=== PATIENT | male | born 1965 | race Two or more races ===

== ENCOUNTER 2016-09-16 01:31 | Emergency (ER) | payer OTHER ==
[~2016-09-16] VITALS: Ht 162.6 cm; Wt 72.6 kg
--- NOTE | 2016-09-16 01:35 | NUR ---
To bed 9 a 51 yo male bibra with c/o "FOUND AT 12/24 SEATED IN CHAIR, SHAKING." Per patient last intake of alcohol was yesterday and said, "Im a chronic alcoholic." Patient is aaox3, ambulatory. No s/s of acute distress. Breathing even and unlabored. VSS. Denies any pain, or discomfort. Gowned. Awaiting for er md sanchez.
[2016-09-16] MEDS ORDERED: IV D5/ 0.9% NACL 1,000 ML IV ONE (01:58)
[2016-09-16] MEDS ORDERED: IV SET PRIMARY 1 EA INFUS.SET MC ONE (01:59)
--- NOTE | 2016-09-16 02:17 | NUR ---
Started a saline lock 20g on the left ac, blood drawd and sent to lab.
[2016-09-16 02:20] LABS: BASOPHILS # (AUTO) 0.1 /CMM (0.0-0.2); BASOPHILS % (AUTO) 0.9 % (0.0-2.0); EOSINOPHILS # (AUTO) 0.2 /CMM (0.0-0.7); EOSINOPHILS % (AUTO) 3.9 % (0.0-6.0); HEMATOCRIT 45 % (39-51); HEMOGLOBIN 14.6 g/dL (13.5-17.5); LYMPHOCYTES # (AUTO) 3.1 /CMM (0.8-4.8); LYMPHOCYTES % (AUTO) 50.6 % (20.0-44.0); MEAN CORPUSCULAR HEMOGLOBIN 30 PG (26.0-33.0); MEAN CORPUSCULAR HGB CONC 33 g/dl (31.0-36.0); MEAN CORPUSCULAR VOLUME 92 fL (80-96); MONOCYTES # (AUTO) 0.4 /CMM (0.1-1.30); MONOCYTES % (AUTO) 6.9 % (2.0-12.0); NEUTROPHILS # (AUTO) 2.3 /CMM (1.8-8.9); NEUTROPHILS % (AUTO) 37.7 % (43.0-81.0); PLATELET COUNT (AUTO) 280 /CMM (150-450); RDW COEFFICIENT OF VARIATION 17.8 (11.5-15.0); RED BLOOD CELL COUNT(AUTO) 4.87 MIL/uL (4.5-6.0); WHITE BLOOD COUNT (AUTO) 6.1 K/uL (4.3-11.0)
[2016-09-16] MEDS ORDERED: FLUORESCEIN SODIUM OPHTH 1 EA STRIP ONE (02:21)
[2016-09-16] MEDS ORDERED: TETRACAINE HCL/PF 0.5% UD 2 ML BOTTLE ONE (02:21)
[2016-09-16 02:29] LABS: CALCIUM, SERUM 8.5 mg/dL (8.5-10.1); CREATININE 0.7 mg/dL (0.6-1.3); POTASSIUM 4.1 mmol/L (3.5-5.1)
[2016-09-16] MEDS ORDERED: TETRACAINE HCL/PF 0.5% UD 2 ML BOTTLE LEFTEYE ONE (02:30)
[2016-09-16] MEDS ORDERED: FLUORESCEIN SODIUM OPHTH 1 EA STRIP OP ONE (02:30)
[2016-09-16 02:35] LABS: ALBUMIN 3.6 g/dL (3.4-5.0); BILIRUBIN,DIRECT 0.1 mg/dL (0.0-0.2); BILIRUBIN,TOTAL 0.2 mg/dL (0.2-1.0); SALICYLATE 2.6 mg/dL (2.8-20.0); TOTAL PROTEIN, SERUM 8.3 g/dL (6.4-8.2)
[2016-09-16] MEDS ORDERED: SOD BORATE/BORIC AC/H2O/NACL 118 ML BOTTLE ONE (02:36)
--- NOTE | 2016-09-16 03:00 | NUR ---
irrigated left eye with ocu wash per Dr Ulises madden, sumit yaritza procedure well.
[2016-09-16 03:03] LABS: APPEARANCE,URINE CLEAR (CLEAR); BILIRUBIN,URINE NEGATIVE (NEGATIVE); BLOOD, URINE NEGATIVE Ery/uL (NEGATIVE); COLOR,URINE YELLOW (YELLOW); KETONES,URINE NEGATIVE (NEGATIVE); LEUKOCYTE ESTERASE ,URINE NEGATIVE (NEGATIVE); NITRITE, URINE NEGATIVE (NEGATIVE); PH,URINE 5.5 (5.0-8.0); PROTEIN,URINE NEGATIVE (NEGATIVE); UGLUCOSE NEGATIVE (NEGATIVE); UROBILINOGEN,URINE 0.2 EU/dL (0.2)
[2016-09-16 03:27] LABS: CANNABINOID, URINE NEGATIVE (NEGATIVE); PHENCYCLIDINE SCREEN,URINE NEGATIVE (NEGATIVE)
[2016-09-16] MEDS ORDERED: LORAZEPAM 1 MG TABLET PO ONE (04:00)
[2016-09-16] MEDS ORDERED: ACYCLOVIR 200 MG CAPSULE PO ONE (04:00)
--- NOTE | 2016-09-16 04:35 | NUR ---
When patient learned that he is going to be discharged as ordered by md, patient got mad started yelling, getting agitated and aggressive. Patient walked out from facility. Dr Montgomery notified.
[2016-09-16 04:45] VITALS: BP 138/68
== END 2016-09-16 04:38 | disposition home or self-care (01) ==
LOC: ER 01:33
DX: F10.239 Alcohol dependence with withdrawal, unspecified (principal); B02.9 Zoster without complications
CPT/HCPCS: 36415; 80048; 80076; 80305; 80329; 81001; 83690; 83735; 85025; 93005; 96360; 99285; A4606; G0480 ×2; Z7610; 81000-TC; G6039-TC

== ENCOUNTER 2016-10-17 19:26 | Emergency (ER) | payer OTHER ==
[~2016-10-17] VITALS: Ht 177.8 cm; Wt 90.7 kg
--- NOTE | 2016-10-17 19:28 | NUR ---
PT BIB [facility] FOR ETOH INTOX. DENIES PHYSICAL COMPLAINT. DENIES SI/HI. NAD NOTED. PT ALERT BUT APPEARS INTOXICATED. ADMITS TO ETOH USE TODAY. IN ER BED 15 ON MONITOR.
--- NOTE | 2016-10-17 19:39 | NUR ---
ACCU-ISPCM=[id number].
--- NOTE | 2016-10-17 21:49 | NUR ---
Patient is resting comfortably in bed with eyes closed. Easily aroused. PT REPORTS DIZZINESS WHEN AWOKEN; PROVIDED WITH URINAL AND ALLOWED TO GO BACK TO SLEEP.
--- NOTE | 2016-10-17 23:31 | NUR ---
PT RESTING COMFORTABLY, NAD NOTED. REPORT GIVEN TO MARY ADAMS RN FOR OTILIA.
--- NOTE | 2016-10-18 05:50 | NUR ---
PT WOKE UP AND WAS ABLE TO AMBULATE WITH A STEADY GAIT. NO ATAXIA NOTED.
--- NOTE | 2016-10-18 05:50 | NUR ---
Patient discharged to home in stable condition. Written and verbal after care instructions given. Patient verbalizes understanding of instruction. PT AMBULATED OUT WITH A STEADY GAIT. VSS.
[2016-10-18 05:54] VITALS: BP 150/94
== END 2016-10-18 05:56 | disposition home or self-care (01) ==
LOC: ER 19:28
DX: R56.9 Unspecified convulsions (principal); F10.10 Alcohol abuse, uncomplicated; F17.200 Nicotine dependence, unspecified, uncomplicated; Z98.890 Other specified postprocedural states
CPT/HCPCS: 82962; 99283; A4606; Z7610

== ENCOUNTER 2016-10-22 13:48 | Emergency (ER) | payer OTHER ==
[~2016-10-22] VITALS: Ht 172.7 cm; Wt 108.4 kg
--- NOTE | 2016-10-22 14:09 | NUR ---
PT BIB RA C/O "SEIZURES FROM ALCOHOL WITHDRAWAL", HOWEVER NOTED WITH NO SZ ACTIVITY UPON ARRIVAL. C/O FALL DURING SZ WHICH CAUSED GALLITO HAND PAIN. ALSO C/O LLE PAIN X2 MONTHS. A/OX4, ABLE TO FOLLOW COMMANDS. RESP EVEN UNLABORED. SKIN WARM NONDIAPHORETIC, VERY DIRTY WITH POOR HYGIENE. IN ER BED 09.
--- NOTE | 2016-10-22 14:33 | NUR ---
PT TRANSPORTED TO CT IN STABLE CONDITION VIA [facility]
[2016-10-22 14:50] LABS: BASOPHILS # (AUTO) 0.2 /CMM (0.0-0.2); EOSINOPHILS # (AUTO) 0.1 /CMM (0.0-0.7); EOSINOPHILS % (AUTO) 1.1 % (0.0-6.0); HEMATOCRIT 41 % (39-51); HEMOGLOBIN 13.6 g/dL (13.5-17.5); LYMPHOCYTES # (AUTO) 1.7 /CMM (0.8-4.8); LYMPHOCYTES % (AUTO) 23.7 % (20.0-44.0); MEAN CORPUSCULAR HEMOGLOBIN 31 PG (26.0-33.0); MEAN CORPUSCULAR HGB CONC 33 g/dl (31.0-36.0); MEAN CORPUSCULAR VOLUME 94 fL (80-96); MONOCYTES # (AUTO) 0.6 /CMM (0.1-1.30); MONOCYTES % (AUTO) 8.1 % (2.0-12.0); NEUTROPHILS # (AUTO) 4.4 /CMM (1.8-8.9); NEUTROPHILS % (AUTO) 64.1 % (43.0-81.0); PLATELET COUNT (AUTO) 223 /CMM (150-450); RDW COEFFICIENT OF VARIATION 19.1 (11.5-15.0); RED BLOOD CELL COUNT(AUTO) 4.39 MIL/uL (4.5-6.0)
[2016-10-22 15:00] LABS: CALCIUM, SERUM 8.6 mg/dL (8.5-10.1); CREATININE 0.9 mg/dL (0.6-1.3); POTASSIUM 3.7 mmol/L (3.5-5.1)
[2016-10-22 15:05] LABS: INR 0.96 (0.87-1.13)
[2016-10-22 15:07] LABS: ALBUMIN 3.5 g/dL (3.4-5.0); BILIRUBIN,DIRECT 0.2 mg/dL (0.0-0.2); BILIRUBIN,TOTAL 1.1 mg/dL (0.2-1.0); TOTAL PROTEIN, SERUM 7.7 g/dL (6.4-8.2)
--- NOTE | 2016-10-22 15:18 | NUR ---
RESTING QUIETLY, NAD NOTED. ALL NEEDS ATTENDED TO.
[2016-10-22] MEDS ORDERED: LORAZEPAM 1 MG TABLET ONE (15:30)
[2016-10-22] MEDS ORDERED: ACETAMINOPHEN ES 500 MG TABLET ONE (15:30)
[2016-10-22] MEDS ORDERED: LORAZEPAM 1 MG TABLET PO ONE (15:30)
[2016-10-22] MEDS ORDERED: ACETAMINOPHEN ES 500 MG TABLET PO ONE (15:30)
--- NOTE | 2016-10-22 17:39 | NUR ---
EMT AT BEDSIDE APPLYING ULNAR GUTTER SPLINT. SEDATED BUT EASILY AROUSABLE. NAD NOTED. WILL CONTINUE TO MONITOR.
--- NOTE | 2016-10-22 17:44 | NUR ---
CALLED FOR FOOD TRAY
--- NOTE | 2016-10-22 18:55 | NUR ---
Patient discharged to home in stable condition. Written and verbal after care instructions given. Patient verbalizes understanding of instruction but refuses to sign paperwork or take discharge papers with him. NAD noted. Ambulatory with steady gait.
[2016-10-22 18:56] VITALS: BP 130/73
== END 2016-10-22 18:56 | disposition home or self-care (01) ==
LOC: ER 13:49
DX: S62.307A Unspecified fracture of fifth metacarpal bone, left hand, initial encounter for closed fracture (principal); F10.10 Alcohol abuse, uncomplicated; R40.4 Transient alteration of awareness; R74.0 Nonspecific elevation of levels of transaminase and lactic acid dehydrogenase [LDH]; G40.909 Epilepsy, unspecified, not intractable, without status epilepticus; F17.200 Nicotine dependence, unspecified, uncomplicated; X58.XXXA Exposure to other specified factors, initial encounter; Y93.89 Activity, other specified; Y99.8 Other external cause status; Y92.89 Other specified places as the place of occurrence of the external cause
CPT/HCPCS: 36415; 70450-TC; 72125-TC; 73130-TC; 73510-TC; 73550-TC; 80048-TC; 80076-TC; 83690-TC; 85025-TC; 85730-TC; A4606; Z7610

== ENCOUNTER 2016-10-23 17:15 | Emergency (ER) | payer OTHER ==
[~2016-10-23] VITALS: Ht 172.7 cm; Wt 83.9 kg
[2016-10-23 17:28] VITALS: BP 154/100
[2016-10-23] MEDS ORDERED: IV NS 0.9% 1,000 ML BAG IV ONE (18:00)
[2016-10-23] MEDS ORDERED: ACETAMINOPHEN ES 500 MG TABLET PO ONE (18:00)
[2016-10-23] MEDS ORDERED: KETOROLAC TROMETHAMINE INJ 30 MG/ML VIAL IV ONE (18:00)
[2016-10-23] MEDS ORDERED: LORAZEPAM INJ 2 MG/ML VIAL IV ONE (18:00)
[2016-10-23 18:36] LABS: BASOPHILS # (AUTO) 0.1 /CMM (0.0-0.2); EOSINOPHILS # (AUTO) 0.2 /CMM (0.0-0.7); EOSINOPHILS % (AUTO) 3.1 % (0.0-6.0); HEMATOCRIT 41 % (39-51); HEMOGLOBIN 13.4 g/dL (13.5-17.5); LYMPHOCYTES # (AUTO) 2.5 /CMM (0.8-4.8); MEAN CORPUSCULAR HEMOGLOBIN 31 PG (26.0-33.0); MEAN CORPUSCULAR HGB CONC 33 g/dl (31.0-36.0); MEAN CORPUSCULAR VOLUME 95 fL (80-96); MONOCYTES # (AUTO) 0.5 /CMM (0.1-1.30); NEUTROPHILS # (AUTO) 2.7 /CMM (1.8-8.9); NEUTROPHILS % (AUTO) 44.9 % (43.0-81.0); PLATELET COUNT (AUTO) 215 /CMM (150-450); RDW COEFFICIENT OF VARIATION 19.3 (11.5-15.0); RED BLOOD CELL COUNT(AUTO) 4.33 MIL/uL (4.5-6.0)
[2016-10-23 18:46] LABS: CALCIUM, SERUM 8.4 mg/dL (8.5-10.1); POTASSIUM 3.4 mmol/L (3.5-5.1)
[2016-10-23] MEDS ORDERED: POTASSIUM CHLORIDE 20 MEQ TAB.PRT.SR PO ONE ×2 (19:00→19:09)
[2016-10-23] MEDS ORDERED: IV NS 0.9% 2,000 ML ONE (19:09)
[2016-10-23] MEDS ORDERED: KETOROLAC TROMETHAMINE INJ 30 MG/ML VIAL ONE (19:09)
[2016-10-23] MEDS ORDERED: IV SET PRIMARY 1 EA INFUS.SET MC ONE (19:09)
[2016-10-23] MEDS ORDERED: LORAZEPAM INJ 2 MG/ML VIAL ONE (19:10)
--- NOTE | 2016-10-23 19:18 | NUR ---
ALL MEDICATIONS GIVEN ORDERED
--- NOTE | 2016-10-23 19:20 | NUR ---
NO ACUTE DISTRESS; POTASSIUM - REPLACED
--- NOTE | 2016-10-24 00:02 | NUR ---
PT OK TO DISCHARGE PER JYOTHI JORDAN. VITAL SIGNS WITHIN NORMAL LIMITS.IV removed. Catheter intact and site benign. Pressure and 4x4 applied to site. No bleeding noted.Patient discharged to home in stable condition. Written and verbal after care instructions given. Patient verbalizes understanding of instruction.Patient is awake and alert to self, day, and place. PT ambulatory with a steady gait
== END 2016-10-24 00:06 | disposition home or self-care (01) ==
LOC: ER 17:18
DX: S62.305A Unspecified fracture of fourth metacarpal bone, left hand, initial encounter for closed fracture (principal); F10.129 Alcohol abuse with intoxication, unspecified; Z59.0 Homelessness; E87.8 Other disorders of electrolyte and fluid balance, not elsewhere classified; E87.6 Hypokalemia; G40.909 Epilepsy, unspecified, not intractable, without status epilepticus; F17.210 Nicotine dependence, cigarettes, uncomplicated; X58.XXXA Exposure to other specified factors, initial encounter; Y92.89 Other specified places as the place of occurrence of the external cause; Y93.89 Activity, other specified; Y99.8 Other external cause status
CPT/HCPCS: 36415; 80048-TC; 85025-TC; A4606; G0480; J1885; J2060; J7030; Z7610

== ENCOUNTER 2016-10-25 18:01 | Inpatient (IN) | payer OTHER ==
[~2016-10-25] VITALS: Ht 177.8 cm; Wt 97.1 kg
--- NOTE | 2016-10-25 19:00 | NUR ---
PT TO ER BB RA FROM [facility] FOR ETOH ABUSE. NO IMMEDIATE SIGNS OF DISTRESS NOTED UPON ARRIVAL. PT A/OX3. PT ADMITS TO DRINKING ALCOHOL. BREATHS EQUAL AND UNLABORED. PT AMBULATORY WITH STEADY GAIT. PT RESTING IN [facility]
[2016-10-25 19:42] LABS: APPEARANCE,URINE Clear (CLEAR); BILIRUBIN,URINE Negative (NEGATIVE); BLOOD, URINE Negative Ery/uL (NEGATIVE); COLOR,URINE Yellow (YELLOW); KETONES,URINE Negative (NEGATIVE); LEUKOCYTE ESTERASE ,URINE Trace (NEGATIVE); NITRITE, URINE Negative (NEGATIVE); PH,URINE 5.5 (5.0-8.0); PROTEIN,URINE Negative (NEGATIVE); UGLUCOSE Negative (NEGATIVE); UROBILINOGEN,URINE 0.2 EU/dL (0.2)
[2016-10-25 19:50] LABS: CANNABINOID, URINE NEGATIVE (NEGATIVE); PHENCYCLIDINE SCREEN,URINE NEGATIVE (NEGATIVE)
[2016-10-25 20:00] LABS: BASOPHILS % (AUTO) 0.8 % (0.0-2.0); EOSINOPHILS # (AUTO) 0.1 /CMM (0.0-0.7); EOSINOPHILS % (AUTO) 2.6 % (0.0-6.0); HEMATOCRIT 37 % (39-51); HEMOGLOBIN 11.8 g/dL (13.5-17.5); LYMPHOCYTES # (AUTO) 2.7 /CMM (0.8-4.8); LYMPHOCYTES % (AUTO) 47.8 % (20.0-44.0); MEAN CORPUSCULAR HEMOGLOBIN 30 PG (26.0-33.0); MEAN CORPUSCULAR HGB CONC 32 g/dl (31.0-36.0); MEAN CORPUSCULAR VOLUME 94 fL (80-96); MONOCYTES # (AUTO) 0.5 /CMM (0.1-1.30); MONOCYTES % (AUTO) 9.7 % (2.0-12.0); NEUTROPHILS # (AUTO) 2.1 /CMM (1.8-8.9); NEUTROPHILS % (AUTO) 39.1 % (43.0-81.0); PLATELET COUNT (AUTO) 179 /CMM (150-450); RDW COEFFICIENT OF VARIATION 19.3 (11.5-15.0); RED BLOOD CELL COUNT(AUTO) 3.88 MIL/uL (4.5-6.0); WHITE BLOOD COUNT (AUTO) 5.4 K/uL (4.3-11.0)
[2016-10-25] MEDS ORDERED: LORAZEPAM 1 MG TABLET PO ONE (20:00)
[2016-10-25 20:06] LABS: CALCIUM, SERUM 8.1 mg/dL (8.5-10.1); CARBON DIOXIDE 24 mmol/L (21-32); CHLORIDE 104 mmol/L (98-107); CREATININE 0.8 mg/dL (0.6-1.3); GFR 102 mL/min (>60); GLUCOSE 104 mg/dL (74-106); POTASSIUM 3.9 mmol/L (3.5-5.1); SODIUM SERUM 138 mmol/L (136-145); UREA NITROGEN, BLOOD 8 mg/dL (7-18)
[2016-10-25 20:12] LABS: ALANINE AMINOTRANSFERASE 140 U/L (12-78); ALBUMIN 3.2 g/dL (3.4-5.0); ALCOHOL, BLOOD 180 mg/dL (0-0); ALKALINE PHOSPHATASE 88 U/L (46-116); ASPARTATE AMINOTRANSFERASE 160 U/L (15-37); BILIRUBIN,DIRECT 0.1 mg/dL (0.0-0.2); BILIRUBIN,TOTAL 0.3 mg/dL (0.2-1.0); TOTAL PROTEIN, SERUM 7.1 g/dL (6.4-8.2)
[2016-10-25 20:14] LABS: ACETAMINOPHEN < 2 ug/ml (10-30); SALICYLATE < 2.8 mg/dL (2.8-20.0)
[2016-10-25 20:21] LABS: ADD URINE CULTURE NO; BACTERIA,URINE None seen /HPF (None Seen); RBC,URINE 0-2 /HPF (0-2); SQUAMOUS EPITHELIAL CELL,UR Few /HPF (None Seen)
--- NOTE | 2016-10-25 21:12 | NUR ---
CALLED NURSING SUP. FOR MS BED
--- NOTE | 2016-10-25 21:12 | NUR ---
ONESIMO PAGED, DR. JOHN PAUL Bee CERTIFIED OPHTHALMIC TECHNICIAN
[2016-10-25] MEDS ORDERED: ACETAMINOPHEN 325 MG TABLET PO PRN (23:00)
[2016-10-25] MEDS ORDERED: MAGNESIUM HYDROXIDE 30 ML UDC PO PRN (23:00)
[2016-10-25] MEDS ORDERED: ZOLPIDEM TARTRATE 5 MG TABLET PO PRN (23:00)
[2016-10-25] MEDS ORDERED: Z GUARD REMEDY 2 OZ OINT TP PRN (23:00)
[2016-10-25] MEDS ORDERED: ONDANSETRON HCL/PF 4 MG/2 ML VIAL IVP PRN (23:00)
[2016-10-25] MEDS ORDERED: MAG HYDROX/AL HYDROX/SIMETH 30 ML UDC PO PRN (23:00)
[2016-10-26] VITALS (21 sets, daily range): BP systolic 118–230; BP diastolic 34–120
--- NOTE | 2016-10-26 00:40 | NUR ---
CALLING REPORT TO MS
[2016-10-26] MEDS ORDERED: LORAZEPAM 1 MG TABLET ONE (00:45)
--- NOTE | 2016-10-26 01:01 | NUR ---
20G IV STARTED IN RT INSIDE UPPER FOREARM
--- NOTE | 2016-10-26 02:00 | NUR ---
GOURMET COFFEE ATTENDANT NOTE: RECEIVED PATIENT FROM ER, NO ACUTE DISTRESS NOTED. BREATHING EVEN AND UNLABORED, NO SOB NOTED. IV TO RFA #22G IN PLACE. TELE READING SR 95. ORIENTED PATIENT TO ROOM AND USE OF CALL LIGHT. BED LOCKED AND IN LOWEST POSITION, CALL LIGHT IN REACH. WILL CONTINUE TO MONITOR.
[2016-10-26] MEDS ORDERED: THIAMINE HCL 100 MG TABLET ONE (02:14)
[2016-10-26] MEDS ORDERED: FOLIC ACID 1 MG TABLET ONE (02:14)
[2016-10-26] MEDS ORDERED: IV D5/0.45 NACL 1,000 ML IV ONE (02:26)
[2016-10-26] MEDS ORDERED: IV SET PRIMARY PUMP SET 1 EA INFUS.SET MC ONE ×2 (02:26→14:48)
[2016-10-26] MEDS: FOLIC ACID 1 MG TABLET PO SCH ×2 (02:32→07:45)
[2016-10-26] MEDS: IV D5/0.45 NACL 1,000 ML IV PRN ×2 (02:32→15:18)
[2016-10-26] MEDS: THIAMINE HCL 100 MG TABLET PO SCH ×2 (02:32→07:45)
[2016-10-26] MEDS ORDERED: HYDROCODONE/APAP 5/325MG 1 EACH TABLET ONE (02:44)
[2016-10-26] MEDS: HYDROCODONE/APAP 5/325MG 1 EACH TABLET PO PRN ×4 (02:48→21:50)
--- NOTE | 2016-10-26 03:00 | NUR ---
SLOT HOST NOTE: PATIENT COMPLAINS OF LEFT LEG/CALF PAIN 7/10, NORCO 5/325MG ORAL GIVEN PER MD ORDER. WILL CONTINUE TO MONITOR.
--- NOTE | 2016-10-26 06:00 | NUR ---
TAXICAB COORDINATOR NOTE: PATIENT RESTING IN BED, NO ACUTE DISTRESS NOTED. BREATHING EVEN AND UNLABORED, NO SOB NOTED. IV TO RFA #22G IN PLACE, INFUSING D5 1/2NS AT 75ML/HR. TELE READING SR 85. BED LOCKED AND IN LOWEST POSITION, CALL LIGHT IN REACH. WILL ENDORSE TO DAY NURSE TO CONTINUE WITH PLAN OF CARE.
--- NOTE | 2016-10-26 07:30 | NUR ---
UTILITY BILL COLLECTION CLERK NOTES RECEIVED PATIENT AWAKE A/OX3. STATES HEADACHE PAIN SINCE LAST NIGHT WHICH WAS NOT IMPROVED WITH NORCO. PATIENT HAS A HX OF HTN; WILL CHECK BP. PATIENT DENIES SOB DIFFICULTY BREATHING AT THIS TIME. IN POSITION OF COMFORT STATES NO NEEDS AT THIS TIME. CALL LIGHT IN REACH, BED LOWERED AND LOCKED, RAILS UPX3 FOR SAFETY AND WILL ROUND Q2H OR LESS PER NEEDS.
[2016-10-26 07:36] LABS: BASOPHILS % (AUTO) 0.8 % (0.0-2.0); EOSINOPHILS # (AUTO) 0.1 /CMM (0.0-0.7); EOSINOPHILS % (AUTO) 1.8 % (0.0-6.0); HEMATOCRIT 40 % (39-51); HEMOGLOBIN 13.3 g/dL (13.5-17.5); LYMPHOCYTES # (AUTO) 1.7 /CMM (0.8-4.8); LYMPHOCYTES % (AUTO) 27.5 % (20.0-44.0); MEAN CORPUSCULAR HEMOGLOBIN 32 PG (26.0-33.0); MEAN CORPUSCULAR HGB CONC 33 g/dl (31.0-36.0); MEAN CORPUSCULAR VOLUME 95 fL (80-96); MONOCYTES # (AUTO) 0.6 /CMM (0.1-1.30); NEUTROPHILS # (AUTO) 3.8 /CMM (1.8-8.9); NEUTROPHILS % (AUTO) 59.9 % (43.0-81.0); PLATELET COUNT (AUTO) 184 /CMM (150-450); RDW COEFFICIENT OF VARIATION 20.7 (11.5-15.0); RED BLOOD CELL COUNT(AUTO) 4.21 MIL/uL (4.5-6.0); WHITE BLOOD COUNT (AUTO) 6.3 K/uL (4.3-11.0)
--- NOTE | 2016-10-26 07:40 | NUR ---
TIE LAYER NOTES PATIENT MANUAL BP 230/120. NOTIFIED DR DOTY AND PER MD ORDER HYDRALAZINE 10MG ONCE FOR NOW. PATIENT C/O HEADACHE. WILL GIVE PRN NORCO WELL
--- NOTE | 2016-10-26 07:43 | NUR ---
SURVEY WORKER NOTES CALLED PHARMACY TO HAVE HYDRALAZINE VERIFIED
--- NOTE | 2016-10-26 07:46 | NUR ---
SUPERVISOR CHEMICAL NOTES NON ADMIN 9AM MEDS THEY WERE JUST GIVEN AT 230 THIS AM; WILL RESUME TOMORROW
--- NOTE | 2016-10-26 07:50 | NUR ---
STRICKLER ATTENDANT NOTES PATIENT ANXIOUS OVER BLOOD PRESSURE. PRN ATIVAN
[2016-10-26 07:51] LABS: THYROID STIMULATING HORMONE 1.68 uIU/mL (0.358-3.74)
[2016-10-26] MEDS: PANTOPRAZOLE 40 MG TABLET.DR PO SCH (07:52)
[2016-10-26] MEDS: LORAZEPAM INJ 2 MG/ML VIAL IV PRN ×2 (07:52→15:46)
[2016-10-26 07:56] LABS: CALCIUM, SERUM 8.6 mg/dL (8.5-10.1); CREATININE 0.8 mg/dL (0.6-1.3); PHOSPHORUS 3.1 mg/dL (2.5-4.9)
[2016-10-26] MEDS ORDERED: hydrALAZINE HCL 10 MG TABLET PO ONE (08:00)
[2016-10-26] MEDS ORDERED: PHEN-410 PO (08:14)
[2016-10-26] MEDS ORDERED: UNK BP MEDICATION PO (08:14)
--- NOTE | 2016-10-26 08:45 | NUR ---
HEALTH CARE SPECIALIST NOTES NOTIFIED MD OF HTN THIS AM; SYMPTOMATIC
--- NOTE | 2016-10-26 09:15 | NUR ---
MS RN NOTES UPDATED MD ON PATIENT VS
[2016-10-26] MEDS: AMLODIPINE BESYLATE 10 MG TABLET PO SCH (11:05)
[2016-10-26] MEDS: hydrALAZINE HCL 50 MG TABLET PO PRN ×2 (11:06→18:19)
--- NOTE | 2016-10-26 11:12 | NUR ---
MS RN NOTES NOTIFIED DR JIMENEZ OF PATIENT BP AGAIN. PER MD GIVE PO HYDRALAZINE, AND NORVASC. HE WILL UPDATE ORDERS.
--- NOTE | 2016-10-26 11:14 | NUR ---
MS RN NOTES PER MD GIVE ATIVAN 2MG NOW AND HANG IV HYDRALAZINE FOR PATIENT. CALLED PHARMACY TO VERIFY MEDICATIONS
[2016-10-26] MEDS ORDERED: LORAZEPAM INJ 2 MG/ML VIAL IV ONE (11:30)
[2016-10-26] MEDS: hydrALAZINE HCL IV 20 MG VIAL IV PRN ×2 (11:35→17:10)
--- NOTE | 2016-10-26 11:35 | NUR ---
MSRN NOTES PATIENT PLACED ON OBSERVATION TELE
--- NOTE | 2016-10-26 12:34 | NUR ---
MS RN NOTES NOTIFIED DR JIMENEZ OF HTN. PER MD TRANSFER TO ICU AND START NITRO DRIP
--- NOTE | 2016-10-26 12:47 | NUR ---
MS RN NOTES REPORT GIVEN TO KENNETH LAINEZ FOR TRANSFER OF CARE
--- NOTE | 2016-10-26 13:00 | NUR ---
MS RN NOTES TRANSFERED PATIENT TO ICU PER DR JIMENEZ ORDERS. CALLED DR Lucrecia HERNANDEZ TO NOTIFY OF TRANSFER.
--- NOTE | 2016-10-26 13:05 | NUR ---
PASSENGER BRAKEMAN- INITIAL NOTE RECEIVED PT FROM [facility] VIA BED. PT A/O X3. ON ROOM AIR, RESPIRATIONS EVEN AND UNLABORED, NO SOB OR DISTRESS PRESENT. BEDSIDE MONITOR REVEALS SINUS RHYTHM, HR= 95. RFA 20G HL FLUSHED, PATENT AND INTACT. ANOTHERIV TO BE INSERTED. SAFETY MEASURES TAKEN: BED LOCKED AND IN LOW POSITION, SIDE RAILS UP X2, BED ALARM ON AND CALL LIGHT WITHIN REACH, WILL CONTINUE TO MONITOR.
--- NOTE | 2016-10-26 14:40 | NUR ---
PUBLIC RELATIONS COUNSELOR- PT'S BLOOD PRESSURE REMAINS ELEVATED. INFORMED DR. JIMENEZ AND OBTAINED ORDER FOR NITROGLYCERIN DRIP TO KEEP SBP <160, MAX 200 MCG/MIN. PER , YOLANDA TO CONTINUE PT ON IVF. ORDERS PLACED. WILL CONTINUE TO MONITOR.
[2016-10-26] MEDS ORDERED: NITROPRUSSIDE SODIUM 50 MG in IV D5W 250 ML IV PRN (15:00)
[2016-10-26] MEDS ORDERED: NTG 50 MG/D5W250 ML BOTTL 250 ML IV PRN (15:30)
--- NOTE | 2016-10-26 17:35 | NUR ---
LEGAL CONTRACTS SPECIALIST- BED BATH OFFERED TO PATIENT, PT REFUSED. STATES HE TOOK A BATH YESTERDAY. WILL CONTINUE TO MONITOR.
--- NOTE | 2016-10-26 18:30 | NUR ---
SHERIFFS OFFICER- PT'S SBP HAS NOT SUSTAINED >180. NITROGLYCERIN GTT NOT STARTED. LATEST BP= 155/92, HR= 98. BP MANAGED WITH ATIVAN 1 MG IV, HYDRALAZINE 10 MG IV AND HYDRALAZINE 50 MG PO. NORCO 5-325 MG PO GIVEN WELL FOR C/O HEADACHE. WILL ENDORSE TO BALLOON TESTER NURSE THAT NITROGLYCERIN GTT IS AVAILABLE IF NEEDED.
--- NOTE | 2016-10-26 22:20 | NUR ---
ICU/WATER TREATMENT PLANT REPAIRER PT COMPLAINED ABOUT PAIN TO HIS HEAD. PT STATED THAT "I HAVE A VERY BAD HEADACHE AND IT'S HURTING ME." PT WAS GIVEN NORCO 1 TAB FOR PAIN RATED 6/10. CALL LIGHT WITHIN REACH, WILL MONITOR THIS PAIN.
[2016-10-27] VITALS (18 sets, daily range): BP systolic 90–179; BP diastolic 41–99
--- NOTE | 2016-10-27 02:20 | NUR ---
ICU/FLORIST MANAGER PT'S IS VERY RESTLESS, PT SAID HE HAS NIGHTMARE FROM DRINKING AND LIVING ON THE STREET. NOTICED THAT THE IV TO THE RIGHT FOREARM WAS SOLITARIO AND SWOLLEN, THIS WAS DISCONTINUED.
[2016-10-27 04:46] LABS: BASOPHILS % (AUTO) 0.7 % (0.0-2.0); EOSINOPHILS # (AUTO) 0.2 /CMM (0.0-0.7); EOSINOPHILS % (AUTO) 3.5 % (0.0-6.0); HEMATOCRIT 39 % (39-51); HEMOGLOBIN 13.1 g/dL (13.5-17.5); LYMPHOCYTES # (AUTO) 1.9 /CMM (0.8-4.8); LYMPHOCYTES % (AUTO) 29.2 % (20.0-44.0); MEAN CORPUSCULAR HEMOGLOBIN 32 PG (26.0-33.0); MEAN CORPUSCULAR HGB CONC 34 g/dl (31.0-36.0); MEAN CORPUSCULAR VOLUME 95 fL (80-96); MONOCYTES # (AUTO) 0.6 /CMM (0.1-1.30); MONOCYTES % (AUTO) 10.2 % (2.0-12.0); NEUTROPHILS # (AUTO) 3.6 /CMM (1.8-8.9); NEUTROPHILS % (AUTO) 56.4 % (43.0-81.0); PLATELET COUNT (AUTO) 184 /CMM (150-450); RDW COEFFICIENT OF VARIATION 20.4 (11.5-15.0); RED BLOOD CELL COUNT(AUTO) 4.11 MIL/uL (4.5-6.0); WHITE BLOOD COUNT (AUTO) 6.3 K/uL (4.3-11.0)
[2016-10-27 05:01] LABS: ALBUMIN 3.2 g/dL (3.4-5.0); BILIRUBIN,DIRECT 0.1 mg/dL (0.0-0.2); BILIRUBIN,TOTAL 0.6 mg/dL (0.2-1.0); CALCIUM, SERUM 9.1 mg/dL (8.5-10.1); CREATININE 0.8 mg/dL (0.6-1.3); POTASSIUM 4.1 mmol/L (3.5-5.1); TOTAL PROTEIN, SERUM 7.3 g/dL (6.4-8.2)
[2016-10-27] MEDS: IV D5/0.45 NACL 1,000 ML IV PRN ×2 (06:51→21:14)
[2016-10-27] MEDS: PANTOPRAZOLE 40 MG TABLET.DR PO SCH (07:43)
[2016-10-27] MEDS: LORAZEPAM INJ 2 MG/ML VIAL IV PRN ×2 (07:44→13:18)
[2016-10-27] MEDS: AMLODIPINE BESYLATE 10 MG TABLET PO SCH (08:01)
[2016-10-27] MEDS: THIAMINE HCL 100 MG TABLET PO SCH (08:02)
[2016-10-27] MEDS: FOLIC ACID 1 MG TABLET PO SCH (08:02)
[2016-10-27] MEDS: HYDROCODONE/APAP 5/325MG 1 EACH TABLET PO PRN (08:41)
[2016-10-27] MEDS: hydrALAZINE HCL 25 MG TABLET PO SCH ×3 (08:41→21:16)
--- NOTE | 2016-10-27 11:45 | NUR ---
INNA RN., patient received to room 115-2 from ICU patient awake and alert oriented x4 resp unlabored no sob noted patient encouraged use of call light to make all needs known iv site changed in to left hand with # 22 angio catheter used all mechanical tech plan of care and safety discussed and verbalized understanding will continue to assess and evaluate call light with in reach
[2016-10-27] MEDS ORDERED: PHENYTOIN EXTENDED RELEASE 100 MG CAPSULE PO SCH (13:00)
--- NOTE | 2016-10-27 13:20 | NUR ---
INNA RN, C/O anxiety requested with ativan 1mg ivp as ordered
--- NOTE | 2016-10-27 14:20 | NUR ---
INNA RN, good relief of anxiety from ativan will continue to assess and evaluate
--- NOTE | 2016-10-27 16:00 | NUR ---
INNA RN, vitals taken and recorded will continue to assess and evaluate
--- NOTE | 2016-10-27 17:08 | NUR ---
INNA RN, no acute distress noted at present time call light with in reach
--- NOTE | 2016-10-27 19:00 | NUR ---
INNA RN, condition unchanged from previous assessment will continue to assess and evaluate patient encouraged use of call light to make an all needs known call light with in reach
--- NOTE | 2016-10-27 19:30 | NUR ---
RN INITIAL NOTES RECEIVED PATIENT IN BED, AWAKE, ALERT AND ORIENTED X3, WITH PERIODS OF FORGETFULNESS, ABLE TO VERBALIZE NEEDS. BREATHING EVEN AND NONLABORED, TOLERATING ROOM AIR WELL, FREE FROM ANY S/S OF RESPIRATORY DISTRESS. ON TELEMETRY MONITORING, REVEALING SINUS RHYTHM, HR = 78 AT THIS TIME. LEFT HAND IV #22 GAUGE PATENT AND INTACT, FLUSHED WITH NS, FREE FROM ANY S/S OF INFILTRATION OR PHLEBITIS, IVF ONGOING ORDERED. POC DISCUSSED WITH THE PATIENT, WHO VERBALIZES UNDERSTANDING AT THIS TIME. BED LEFT IN LOWEST AND LOCKED POSITION, WITH SIDE RAILS UP X2, CALL LIGHT WITHIN EASY REACH. WILL CONTINUE TO CLOSELY MONITOR.
[2016-10-27] MEDS: PHENYTOIN EXTENDED RELEASE 100 MG CAPSULE PO SCH (21:16)
[2016-10-28] VITALS: BP 167/68
--- NOTE | 2016-10-28 | NUR ---
RN NOTES BLOOD PRESSURE 167/68 @ 0000. PER THE PATIENT, HE JUST CAME BACK FROM THE BATHROOM. RECHECKED BP @ 0100, NOW 152/66. WILL CONTINUE TO CLOSELY MONITOR
[2016-10-28 01:00] VITALS: BP 152/66
[2016-10-28] MEDS: LORAZEPAM INJ 2 MG/ML VIAL IV PRN (01:58)
--- NOTE | 2016-10-28 01:58 | NUR ---
RN NOTES 0158: PATIENT APPEARS RESTLESS, STATES "I FEEL LIKE THE WITHDRAWAL SYMPTOMS ARE GETTING WORSE." ATIVAN IV ADMINISTERED PRESCRIBED. WILL MONITOR FOR EFFECTIVENESS 0300: PATIENT VERBALIZES DECREASE IN ANXIETY, ATIVAN EFFECTIVE. WILL CONTINUE TO MONITOR
[2016-10-28 04:00] VITALS: BP 155/104
--- NOTE | 2016-10-28 04:00 | NUR ---
RN NOTES PATIENT REFUSING PICTURES TO BE TAKEN. PATIENT STATES "LET ME REST FOR NOW." WILL ATTEMPT PICTURES AT A LATER TIME
[2016-10-28] MEDS: hydrALAZINE HCL 25 MG TABLET PO SCH ×2 (05:25→12:51)
[2016-10-28 06:39] LABS: BASOPHILS % (AUTO) 0.5 % (0.0-2.0); EOSINOPHILS # (AUTO) 0.2 /CMM (0.0-0.7); EOSINOPHILS % (AUTO) 3.7 % (0.0-6.0); HEMATOCRIT 44 % (39-51); HEMOGLOBIN 14.5 g/dL (13.5-17.5); LYMPHOCYTES # (AUTO) 1.9 /CMM (0.8-4.8); LYMPHOCYTES % (AUTO) 29.9 % (20.0-44.0); MEAN CORPUSCULAR HEMOGLOBIN 32 PG (26.0-33.0); MEAN CORPUSCULAR HGB CONC 33 g/dl (31.0-36.0); MEAN CORPUSCULAR VOLUME 95 fL (80-96); MONOCYTES # (AUTO) 0.7 /CMM (0.1-1.30); MONOCYTES % (AUTO) 10.2 % (2.0-12.0); NEUTROPHILS # (AUTO) 3.6 /CMM (1.8-8.9); NEUTROPHILS % (AUTO) 55.7 % (43.0-81.0); PLATELET COUNT (AUTO) 197 /CMM (150-450); RDW COEFFICIENT OF VARIATION 20.5 (11.5-15.0); RED BLOOD CELL COUNT(AUTO) 4.57 MIL/uL (4.5-6.0); WHITE BLOOD COUNT (AUTO) 6.4 K/uL (4.3-11.0)
[2016-10-28 06:56] LABS: CREATININE 0.8 mg/dL (0.6-1.3)
--- NOTE | 2016-10-28 07:05 | NUR ---
RN NOTES RECEIVED PATIENT AOX3 , NOT IN ACUTE DISTRESS , DENIES SOB AND DISCOMFORT AT THIS TIME WITH SPO2 OF 100% VIA RA , SR 85 ON TELE MONITOR , IV OF L FA # 20 PATENT AND INTACT WITH D5 1/2 NS @ 75ML/HR INFUSING WELL , ALL NEEDS ATTENDED , BED ON LOW AND LOCKED POSITION , SIDE RAILS X2 CALL LIGHT WITHIN REACH , WILL CONTINUE TO MONITOR
--- NOTE | 2016-10-28 07:08 | NUR ---
RN CLOSING NOTES PATIENT RESTING COMFORTABLY IN BED WITH IVF INFUSING PRESCRIBED. WILL ENDORSE THE PATIENT TO THE AM SHIFT NURSE FOR OTILIA
[2016-10-28 08:00] VITALS: BP 146/88
[2016-10-28] MEDS: PHENYTOIN EXTENDED RELEASE 100 MG CAPSULE PO SCH (08:11)
[2016-10-28] MEDS: FOLIC ACID 1 MG TABLET PO SCH (08:11)
[2016-10-28] MEDS: PANTOPRAZOLE 40 MG TABLET.DR PO SCH (08:11)
[2016-10-28] MEDS: THIAMINE HCL 100 MG TABLET PO SCH (08:11)
[2016-10-28] MEDS: AMLODIPINE BESYLATE 10 MG TABLET PO SCH (08:12)
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
[2016-10-28 12:00] VITALS: BP 146/92
--- NOTE | 2016-10-28 12:00 | NUR ---
RN NOTES MIGDALIA DEAN AT BEDSIDE , NOTIFIED LABS , SPO2 OF 100% VIA RA , BP OF 146 / 82 , NO DISCOMFORT , AMBULATORY WITH NO S/S OF HEADACHE OR DISTRESS , TOLERATING DIET , AFEBRILE , PENDING SOCIAL SERVICE CONSULT FOR PLACEMENT , PHARMACY SERVICES REPRESENTATIVE AWARE
[2016-10-28] MEDS ORDERED: PHEN100C4 PO (12:22)
[2016-10-28] MEDS ORDERED: THIA100T13 PO (12:22)
[2016-10-28] MEDS ORDERED: AMLO10TA2 PO (12:22)
[2016-10-28] MEDS ORDERED: Hydralazine Hcl PO (12:22)
[2016-10-28] MEDS ORDERED: Folic Acid PO (12:22)
--- NOTE | 2016-10-28 14:08 | NUR ---
Discharge Plan: SW met with patient to discuss discharge plan. Pt agreed to go to [facility] to [facility] [[address] [place] [address]; [place] [address]; [phone]]. ALTAF spoke to Simon [[phone]] from [facility] to [facility]. ALTAF was informed that intake ended at 2pm, but that an emergency bed would be able for the patient if he arrived. Moreover, intake would occur the following day. Transportation via taxi will be provided for the pt. ALTAF updated Carmelo LAINEZ regarding patient's discharge plan. Addendum: 10/28/16 at 1423 by DOROTHY SOLITARIO Pt was medically cleared by .
--- NOTE | 2016-10-28 14:08 | NUR ---
RN NOTES TEXTILE TECHNICAL OFFICER AT BEDSIDE , NOTIFIED LONG-TERM IS AVAILABLE TO PATIENT @ [facility] @ [address] [place] [address] # [phone] , PATIENT AGREES TO BE DISCHARGE AT THE LONG-TERM
[2016-10-28 16:00] VITALS: BP 149/89
--- NOTE | 2016-10-28 17:50 | NUR ---
RN NOTES PT STABLE UPON DISCHARGE , DENIES ANY SOB AND DISCOMFORT AT THIS TIME , V/S STABLE , IV OF L FA # 20 G REMOVED , NO ACTIVE BLEEDING , DISCHARGE INSTRUCTIONS , MEDIATIONS ANS FOLLOW UP WITH PRIMARY CARE PHYSICIAN EXPLAINED , PT VERBALIZED UNDERSTANDING , SKIN ASSESSMENT DONE , NO NEW WOUNDS NOTED , BILATERAL FOOT DRYNESS ,FACIAL SCRUBS NOTED , PT REFUSED TO TAKE A PHOTO OF IT , EXPLAINED THE BENEFITS OF IT , PT VERBALIZED UNDERSTANDING STILL REFUSES , DISCHARGE PT TO [facility] @ [address] [facility] [id number] REFEREED BY [employer] , CALLED TO VERIFY FOR AVAILABLE BED , PER MIGUEL ANGEL BED STILL AVAILABLE , BELONGINGS CHECK ALL BELONGING ARE PRESENT , ACCOMPANIED PT TO THE LOBBY FOR SAFETY , PROVIDED TAXI VOUCHER FOR TRANSPORTATION ,
== END 2016-10-28 17:28 | disposition home or self-care (01) | DRG 775 ==
LOC: ER 18:08 → MED 21:22 → TELE 10-26 03:07 → MED 10-26 09:23 → ICU 10-26 12:55 → TELE-TD 10-27 11:39
DX: F10.229 Alcohol dependence with intoxication, unspecified (principal); F10.239 Alcohol dependence with withdrawal, unspecified; K22.3 Perforation of esophagus; K22.11 Ulcer of esophagus with bleeding; K92.0 Hematemesis; I16.0 Hypertensive urgency; D64.9 Anemia, unspecified; S62.307A Unspecified fracture of fifth metacarpal bone, left hand, initial encounter for closed fracture; E78.5 Hyperlipidemia, unspecified; Z59.0 Homelessness; R74.0 Nonspecific elevation of levels of transaminase and lactic acid dehydrogenase [LDH]; F17.210 Nicotine dependence, cigarettes, uncomplicated; G40.909 Epilepsy, unspecified, not intractable, without status epilepticus; F41.9 Anxiety disorder, unspecified; I10 Essential (primary) hypertension; Z91.19 Patient's noncompliance with other medical treatment and regimen
CPT/HCPCS: 36415; 70450-TC; 80048-TC; 80061-TC; 80076-TC; 80305; 81000-TC; 82746; 83540-TC; 83735-TC; 84100-TC; 84443-TC; 84484-TC; 85025-TC; 87081-TC; 93307-TC; A4606; G0480; G6039-TC; J0360; J2060; J3490; Z7610

== ENCOUNTER 2017-05-09 13:13 | Inpatient (IN) | payer MEDICAID ==
[~2017-05-09] VITALS: Ht 177.8 cm; Wt 98.4 kg
[~2017-05-09 13:13] MED LIST: AMLO10TA2 PO; Folic Acid PO; Hydralazine Hcl PO; PHEN100C4 PO; THIA100T13 PO
--- NOTE | 2017-05-09 13:16 | NUR ---
PT ALEK MORA RALPHS TO ER BED 16. C/O DIFFUSE ABDOMINAL PAIN. DENIES N/V. ADMITS TO BEEN DRINKING. NO OTHER COMPLAINTS AT THIS TIME. GOWNED AND PLACED ON MONITOR. VSS. AWAITING MD MUNGUIA.
--- NOTE | 2017-05-09 13:29 | NUR ---
JASMYNE JORDAN AT BEDSIDE FOR EVAL.
--- NOTE | 2017-05-09 13:33 | NUR ---
PT NOW STATING THAT HE FELL EARLIER AND HIT HIS HEAD. NO OBVIOUS TRAUMA NOTED.
[2017-05-09 13:57] LABS: BASOPHILS # (AUTO) 0.1 /CMM (0.0-0.2); BASOPHILS % (AUTO) 0.6 % (0.0-2.0); EOSINOPHILS # (AUTO) 0.2 /CMM (0.0-0.7); HEMATOCRIT 42 % (39-51); HEMOGLOBIN 13.7 g/dL (13.5-17.5); LYMPHOCYTES # (AUTO) 3.1 /CMM (0.8-4.8); LYMPHOCYTES % (AUTO) 34.9 % (20.0-44.0); MEAN CORPUSCULAR HEMOGLOBIN 33 PG (26.0-33.0); MEAN CORPUSCULAR HGB CONC 33 g/dl (31.0-36.0); MEAN CORPUSCULAR VOLUME 99 fL (80-96); MONOCYTES # (AUTO) 0.9 /CMM (0.1-1.30); NEUTROPHILS # (AUTO) 4.7 /CMM (1.8-8.9); NEUTROPHILS % (AUTO) 52.5 % (43.0-81.0); PLATELET COUNT (AUTO) 285 /CMM (150-450); RDW COEFFICIENT OF VARIATION 15.8 (11.5-15.0); RED BLOOD CELL COUNT(AUTO) 4.19 MIL/uL (4.5-6.0)
[2017-05-09] MEDS ORDERED: IV NS 0.9% 1,000 ML BAG IV ONE (14:00)
--- NOTE | 2017-05-09 14:10 | NUR ---
PT TO RADIOLOGY FOR HEAD CT SCAN VIA [facility].
[2017-05-09 14:13] LABS: ALANINE AMINOTRANSFERASE 96 U/L (12-78); ALBUMIN 3.2 g/dL (3.4-5.0); ALCOHOL, BLOOD 285 mg/dL (0-0); ALKALINE PHOSPHATASE 65 U/L (46-116); ASPARTATE AMINOTRANSFERASE 51 U/L (15-37); BILIRUBIN,DIRECT 0.1 mg/dL (0.0-0.2); BILIRUBIN,TOTAL 0.3 mg/dL (0.2-1.0); CALCIUM, SERUM 8.6 mg/dL (8.5-10.1); CARBON DIOXIDE 23 mmol/L (21-32); CHLORIDE 104 mmol/L (98-107); CREATININE 0.7 mg/dL (0.6-1.3); GLUCOSE 100 mg/dL (74-106); SODIUM SERUM 139 mmol/L (136-145); TOTAL PROTEIN, SERUM 7.1 g/dL (6.4-8.2); UREA NITROGEN, BLOOD 7 mg/dL (7-18)
[2017-05-09 14:19] LABS: ACETAMINOPHEN < 2 ug/ml (10-30); INR 0.93 (0.87-1.13); PROTHROMBIN TIME 9.7 SECS (9.5-12.7); SALICYLATE 2.7 mg/dL (2.8-20.0)
[2017-05-09 14:23] LABS: TROPONIN I 0.533 ng/mL (0.00-0.056)
[2017-05-09] MEDS ORDERED: PHEN100C4 PO (14:39)
[2017-05-09] MEDS ORDERED: FOLI1TAB16 PO (14:39)
[2017-05-09] MEDS ORDERED: AMLO10TA2 PO (14:39)
[2017-05-09] MEDS ORDERED: THIA100T13 PO (14:39)
[2017-05-09] MEDS ORDERED: HYDR-4076 PO (14:39)
[2017-05-09 14:49] LABS: APPEARANCE,URINE CLEAR (CLEAR); BILIRUBIN,URINE NEGATIVE (NEGATIVE); BLOOD, URINE NEGATIVE Ery/uL (NEGATIVE); COLOR,URINE YELLOW (YELLOW); KETONES,URINE NEGATIVE (NEGATIVE); LEUKOCYTE ESTERASE ,URINE NEGATIVE (NEGATIVE); NITRITE, URINE NEGATIVE (NEGATIVE); PH,URINE 5.5 (5.0-8.0); PROTEIN,URINE NEGATIVE (NEGATIVE); UGLUCOSE NEGATIVE (NEGATIVE); UROBILINOGEN,URINE 0.2 EU/dL (0.2)
[2017-05-09] MEDS ORDERED: ASPIRIN 325 MG TABLET ONE (14:57)
[2017-05-09] MEDS ORDERED: NITROGLYCERIN PACKET 1 GM PACKET ONE (14:57)
[2017-05-09] MEDS ORDERED: NITROGLYCERIN PACKET 1 GM PACKET TOP ONE (15:00)
[2017-05-09] MEDS ORDERED: ASPIRIN 325 MG TABLET PO ONE (15:00)
[2017-05-09] MEDS ORDERED: IV D5W 1,000 ML IV PRN (15:09)
--- NOTE | 2017-05-09 15:17 | NUR ---
REPORT GIVEN TO TRAM. PT AWAITING TRANSFER TO FLOOR.
[2017-05-09] MEDS ORDERED: ACETAMINOPHEN 325 MG TABLET PO PRN (15:30)
[2017-05-09] MEDS ORDERED: MAG HYDROX/AL HYDROX/SIMETH 30 ML UDC PO PRN (15:30)
[2017-05-09] MEDS ORDERED: ONDANSETRON HCL/PF 4 MG/2 ML VIAL IVP PRN (15:30)
[2017-05-09] MEDS ORDERED: ASPIRIN 81 MG TAB.CHEW PO ONE (15:30)
[2017-05-09] MEDS ORDERED: ZOLPIDEM TARTRATE 5 MG TABLET PO PRN (15:30)
[2017-05-09] MEDS ORDERED: Z GUARD REMEDY 2 OZ OINT TP PRN (15:30)
[2017-05-09] MEDS ORDERED: MAGNESIUM HYDROXIDE 30 ML UDC PO PRN (15:30)
--- NOTE | 2017-05-09 15:30 | NUR ---
patient admitted from E.R WITH NO S/S OF DISTRESS .NO C/O PAIN. ALL M.D ORDERS NOTED AND CARRIED OUT.A/O X3 I.V SITE ON L WRIST CDI AND PATENT .ON D5W 1/ N.S @ 75ML/HR. WILL CONTINUE TO MONITOR FOR CHANGES
[2017-05-09 16:00] VITALS: BP 122/71
[2017-05-09] MEDS ORDERED: ENOXAPARIN SODIUM 40 MG/0.4 ML DISP.SYRIN SQ SCH (16:00)
[2017-05-09 16:02] VITALS: BP 122/71
[2017-05-09] MEDS: METOPROLOL TARTRATE 25 MG TABLET PO SCH (16:47)
[2017-05-09] MEDS: IV D5/0.45 NACL 1,000 ML IV PRN (17:27)
[2017-05-09] MEDS ORDERED: MORPHINE SULFATE INJ 2 MG/ML DISP.SYRIN IV PRN (17:30)
[2017-05-09] MEDS: ENOXAPARIN SODIUM 100 MG/ML DISP.SYRIN SQ SCH (18:20)
--- NOTE | 2017-05-09 19:00 | NUR ---
RN INITIAL NOTES RECEIVED PATIENT IN BED, AWAKE AND ALERT. PATIENT WITH NO C/O PAIN AND DISCOMFORT AT THIS TIME. PATIENT ON ROOM AIR WITH NO DISTRESS. SR ON TELE WITH HR OF 67. IVF ORDERED ON PATIENT'S L WRIST G18, NO SIGNS OF INFILTRATION, INTACT AND PATENT. PATIENT'S NEEDS ANTICIPATED AND MET. SAFETY AND COMFORT ENSURED. BED IN LOW AND LOCKED POSITION. CALL LIGHT IN REACH. WILL MONITOR.
[2017-05-09 20:00] VITALS: BP 99/49
[2017-05-09] MEDS: hydrALAZINE HCL 25 MG TABLET PO SCH (21:00)
[2017-05-09] MEDS: PHENYTOIN EXTENDED RELEASE 100 MG CAPSULE PO SCH (21:21)
--- NOTE | 2017-05-09 21:30 | NUR ---
RN NOTES PATIENT'S SERIAL TROPONIN RESULTED, 0.466 WITH EKG OF NSR. TROPONIN IS TRENDING DOWN FROM 0.533. DR. CORRALES NOTIFIED WITH NNO. PATIENT WITH NO COMPLAINT OF PAIN AND DISCOMFORT AT THIS TIME. NEEDS ANTICIPATED AND MET.
--- NOTE | 2017-05-09 21:45 | NUR ---
RN NOTES PATIENT'S SCHEDULED HYDRALAZINE 25MG NON ADMINISTERED, PATIENT WITH LOW BP OF 99/60, 66. CN AWARE.
[2017-05-10] VITALS: BP 121/67
--- NOTE | 2017-05-10 02:33 | NUR ---
RN NOTES PATIENT'S SERIAL TROPONIN RESULTED, 0.344 WITH NSR IN EKG. MD AWARE, CN AWARE. NNO.
[2017-05-10 04:00] VITALS: BP 153/89
[2017-05-10] MEDS: hydrALAZINE HCL 25 MG TABLET PO SCH ×3 (05:32→21:08)
[2017-05-10] MEDS: IV D5/0.45 NACL 1,000 ML IV PRN (05:33)
--- NOTE | 2017-05-10 06:42 | NUR ---
RN CLOSING NOTES PATIENT WITH NO FURTHER COMPLAIN OF CHEST PAIN/DISCOMFORT. PATIENT GIVEN BED BATH AND KEPT CLEAN AND DRY. IVF ORDERED. ALL DUE MEDS GIVEN ORDERED. AM LABS DRAWN. PATIENT'S NEEDS ANTICIPATED AND MET. SAFETY AND COMFORT ENSURED. CALL LIGHT IN REACH. WILL ENDORSE ACCORDINGLY FOR CONTINUITY OF CARE.
--- NOTE | 2017-05-10 07:00 | NUR ---
RN OPENING NOTES RECV'D REPORT FROM VAL RN. PT AA04. AMBL INDEP. NO APPARENT DISTRESS. SERIAL TROP MILDLY ABNORMAL AND TRENDING DOWNWARD. PT HERE FOR NSTEMI, SEIZURE, ETOH. PLAN FOR ECHO, LABS, AND CARDIO CONSULT TODAY. PT HAS LW18G INFUSING D51/2 NS @75CC/HR. TELE NSR 60'S. VOIDS. CALL LIGHT IN REACH. BED IN LOW LOCKED POSITION. WILL CONT TO MONITOR CLOSELY.
[2017-05-10 08:00] VITALS: BP 169/80
[2017-05-10 08:19] LABS: BASOPHILS # (AUTO) 0.2 /CMM (0.0-0.2); BASOPHILS % (AUTO) 2.1 % (0.0-2.0); EOSINOPHILS # (AUTO) 0.2 /CMM (0.0-0.7); EOSINOPHILS % (AUTO) 2.3 % (0.0-6.0); HEMATOCRIT 42 % (39-51); HEMOGLOBIN 13.5 g/dL (13.5-17.5); LYMPHOCYTES # (AUTO) 2.9 /CMM (0.8-4.8); LYMPHOCYTES % (AUTO) 30.3 % (20.0-44.0); MEAN CORPUSCULAR HEMOGLOBIN 32 PG (26.0-33.0); MEAN CORPUSCULAR HGB CONC 32 g/dl (31.0-36.0); MEAN CORPUSCULAR VOLUME 100 fL (80-96); MONOCYTES # (AUTO) 0.8 /CMM (0.1-1.30); MONOCYTES % (AUTO) 8.1 % (2.0-12.0); NEUTROPHILS # (AUTO) 5.4 /CMM (1.8-8.9); NEUTROPHILS % (AUTO) 57.2 % (43.0-81.0); PLATELET COUNT (AUTO) 232 /CMM (150-450); RED BLOOD CELL COUNT(AUTO) 4.21 MIL/uL (4.5-6.0); WHITE BLOOD COUNT (AUTO) 9.4 K/uL (4.3-11.0)
[2017-05-10] MEDS: THIAMINE HCL 100 MG TABLET PO SCH (08:21)
[2017-05-10] MEDS: FOLIC ACID 1 MG TABLET PO SCH (08:21)
[2017-05-10] MEDS: PHENYTOIN EXTENDED RELEASE 100 MG CAPSULE PO SCH ×2 (08:21→21:08)
[2017-05-10] MEDS: AMLODIPINE BESYLATE 10 MG TABLET PO SCH (08:23)
[2017-05-10] MEDS: METOPROLOL TARTRATE 25 MG TABLET PO SCH ×2 (08:23→16:06)
[2017-05-10] MEDS: ENOXAPARIN SODIUM 100 MG/ML DISP.SYRIN SQ SCH ×2 (08:25→21:11)
[2017-05-10 08:34] LABS: CALCIUM, SERUM 8.8 mg/dL (8.5-10.1); CREATININE 0.9 mg/dL (0.6-1.3); MAGNESIUM 1.9 mg/dL (1.8-2.4); PHOSPHORUS 3.2 mg/dL (2.5-4.9); POTASSIUM 4.3 mmol/L (3.5-5.1)
[2017-05-10 08:43] LABS: THYROID STIMULATING HORMONE 1.813 uIU/mL (0.358-3.74)
[2017-05-10 12:00] VITALS: BP 170/89
[2017-05-10] MEDS: NICOTINE PATCH (21MG) 21 MG PATCH.TD24 TD SCH (13:41)
[2017-05-10 16:00] VITALS: BP_SYST 161; BP_SYST 175; BP_DIAS 80; BP_DIAS 86
--- NOTE | 2017-05-10 18:17 | NUR ---
PT ROLLED OVER AND ACCIDENTALLY PULLED OUT IV. MADE 2 ATTEMPTS. NOW SIVA LAINEZ IS ATTEMPTING.
--- NOTE | 2017-05-10 18:32 | NUR ---
RN CLOSING NOTE PT TOLERATING NICOTINE PATCH WELL--DENIES CRAVINGS. LW 22G PIV STARTED. D51/2 NS INFUSING AT 75 ML/HR. NO SEIZURE ACTIVITY--PT ON DILANTIN PO. NSR 70S. CALL LIGHT IN REACH. BED IN LOW LOCKED POSITION. WILL ENDORSE TO VAL RN.
[2017-05-10 20:00] VITALS: BP 163/92
[2017-05-10] MEDS: HYDROCODONE/APAP 5/325MG 1 EACH TABLET PO PRN (21:08)
[2017-05-11] VITALS: BP 167/89
[2017-05-11 04:00] VITALS: BP 141/91
[2017-05-11] MEDS: HYDROCODONE/APAP 5/325MG 1 EACH TABLET PO PRN ×3 (04:07→17:08)
[2017-05-11] MEDS: hydrALAZINE HCL 25 MG TABLET PO SCH ×3 (04:07→21:26)
--- NOTE | 2017-05-11 07:17 | NUR ---
RN NOTES RECEIVED PT FROM SHIFT SUPERINTENDENT IN STABLE CONDITION ON ROOM AIR NO DISTRESS NOTED. A&0X2-3 WITH BRIEF PERIODS OF CONFUSION, PT REORIENTED. SR ON THE TELE MONITOR HR 67. R HAND 22G IV SITE WITH IVF AT 75ML/HR. BED LOCKED AND IN LOWEST POSITION, CALL LIGHT WITHIN REACH, SIDE RAILS UPX3, WILL CONT TO MONITOR
[2017-05-11 08:00] VITALS: BP 145/90
[2017-05-11] MEDS: THIAMINE HCL 100 MG TABLET PO SCH (08:32)
[2017-05-11] MEDS: AMLODIPINE BESYLATE 10 MG TABLET PO SCH (08:32)
[2017-05-11] MEDS: FOLIC ACID 1 MG TABLET PO SCH (08:32)
[2017-05-11] MEDS: METOPROLOL TARTRATE 25 MG TABLET PO SCH ×2 (08:33→16:15)
[2017-05-11] MEDS: NICOTINE PATCH (21MG) 21 MG PATCH.TD24 TD SCH (08:33)
[2017-05-11] MEDS: PHENYTOIN EXTENDED RELEASE 100 MG CAPSULE PO SCH ×2 (08:33→21:26)
[2017-05-11] MEDS: ENOXAPARIN SODIUM 100 MG/ML DISP.SYRIN SQ SCH ×2 (08:34→21:25)
[2017-05-11] MEDS ORDERED: FUROSEMIDE 20 MG/2 ML VIAL IV ONE (10:00)
[2017-05-11 10:51] LABS: TROPONIN I 0.201 ng/mL (0.00-0.056)
[2017-05-11 10:57] LABS: THYROID STIMULATING HORMONE 2.103 uIU/mL (0.358-3.74)
[2017-05-11 12:00] VITALS: BP 130/82
--- NOTE | 2017-05-11 15:00 | NUR ---
RN NOTES PER RADIOLOGY PT NEEDS RIGHT AC 18G FOR CT ANGIO IN THE MORNING, ATTEMPTED WITH CHARGE NURSE WELL. MIDLINE NURSE CALLED PER SHOP HAND. WILL FOLLOW UP.
[2017-05-11 16:00] VITALS: BP 134/75
--- NOTE | 2017-05-11 18:27 | NUR ---
RN NOTES PT REMAINED IN STABLE CONDITION THROUGHOUT THE SHIFT, NO SIGNIFICANT CHANGES. ALL NEEDS MET, PT CLEANED, SNACKS AND PAIN MEDICATION PROVIDED. PT NPO AFTER MIDNIGHT FOR CT ANGIO. CALL LIGHT WITHIN REACH, WILL ENDORSE TO ONCOMING SHIFT. AWAITING MIDLINE NURSE, COCONUT JELLY ROLLER & CHARGE NURSE AWARE.
--- NOTE | 2017-05-11 19:35 | NUR ---
TREAD CUTTER NOTES RECEIVED PT FROM DAY SHIFT IN STABLE CONDIITON. NO SIGNS OF SOB OR DISTRESS. BREATHING EVENLY AND UNLABORED ON RA. ALERT AND ORIENTED X2-3 WITH PERIODS OF CONFUSION, NEEDING CONSTANT REORIENTING. IV ACCESS IS INTACT AND PATENT. PENDING MIDLINE INSERTION FOR CT ANGIO. TELE MONITOR SHOWING HR 69. BED IS IN LOW AND LOCKED POSITION, CALL LIGHT WITHIN REACH. WILL CONTINUE TO MONITOR PT
[2017-05-11 20:00] VITALS: BP 142/75
[2017-05-11] MEDS: CHLORDIAZEPOXIDE HCL 25 MG CAPSULE PO PRN (23:43)
[2017-05-12] VITALS (12 sets, daily range): BP systolic 112–145; BP diastolic 63–84
[2017-05-12] MEDS: hydrALAZINE HCL 25 MG TABLET PO SCH ×3 (04:23→20:59)
--- NOTE | 2017-05-12 06:24 | NUR ---
SENIOR PROJECT ACCOUNTANT CLOSING NOTES PT REMAINED IN STABLE CONDITION THROUGHOUT THE SHIFT. NO SIGNS OF SOB OR DISTRESS. ALL NEEDS MET. PT NPO SINCE MIDNIGHT FOR CT ANGIO. MIDLINE WAS INSERTED. BED IS IN LOW AND LOCKED POSITION, CALL LIGHT WITHIN REACH. WILL ENDORSE TO DAYSHIFT.
[2017-05-12 06:37] LABS: BASOPHILS % (AUTO) 0.5 % (0.0-2.0); EOSINOPHILS # (AUTO) 0.3 /CMM (0.0-0.7); EOSINOPHILS % (AUTO) 3.5 % (0.0-6.0); HEMATOCRIT 42 % (39-51); HEMOGLOBIN 14.2 g/dL (13.5-17.5); LYMPHOCYTES # (AUTO) 2.4 /CMM (0.8-4.8); LYMPHOCYTES % (AUTO) 33.3 % (20.0-44.0); MEAN CORPUSCULAR HEMOGLOBIN 33 PG (26.0-33.0); MEAN CORPUSCULAR HGB CONC 34 g/dl (31.0-36.0); MEAN CORPUSCULAR VOLUME 98 fL (80-96); MONOCYTES # (AUTO) 0.7 /CMM (0.1-1.30); MONOCYTES % (AUTO) 9.9 % (2.0-12.0); NEUTROPHILS # (AUTO) 3.8 /CMM (1.8-8.9); NEUTROPHILS % (AUTO) 52.8 % (43.0-81.0); PLATELET COUNT (AUTO) 243 /CMM (150-450); RDW COEFFICIENT OF VARIATION 16.1 (11.5-15.0); RED BLOOD CELL COUNT(AUTO) 4.34 MIL/uL (4.5-6.0); WHITE BLOOD COUNT (AUTO) 7.3 K/uL (4.3-11.0)
--- NOTE | 2017-05-12 07:19 | NUR ---
RN NOTES RECEIVED PT IN STABLE CONDITION. A&0X2-3 WITH PERIODS OF CONFUSION, PT REORIENTED. ON ROOM AIR NO SOB OR DISTRESS NOTED. SR ON THE TELE MONITOR HR 86. PT NPO EXCEPT MEDS AWAITING CT. CEASAR MIDLINE AND R HAND 22G DRY AND INTACT, NO IVF. BED LOCKED AND IN LOWEST POSITION, CALL LIGHT WITHIN REACH, SIDE RAILS UPX3, WILL CONT TO MONITOR.
[2017-05-12 07:46] LABS: ALBUMIN 3.3 g/dL (3.4-5.0); BILIRUBIN,TOTAL 0.5 mg/dL (0.2-1.0); CALCIUM, SERUM 9.2 mg/dL (8.5-10.1); CREATININE 0.8 mg/dL (0.6-1.3); MAGNESIUM 2.1 mg/dL (1.8-2.4); PHOSPHORUS 4.5 mg/dL (2.5-4.9); POTASSIUM 4.1 mmol/L (3.5-5.1); TOTAL PROTEIN, SERUM 7.5 g/dL (6.4-8.2)
[2017-05-12 07:51] LABS: TROPONIN I 0.136 ng/mL (0.00-0.056)
[2017-05-12] MEDS: PHENYTOIN EXTENDED RELEASE 100 MG CAPSULE PO SCH ×2 (08:20→21:00)
[2017-05-12] MEDS: AMLODIPINE BESYLATE 10 MG TABLET PO SCH (08:21)
[2017-05-12] MEDS: THIAMINE HCL 100 MG TABLET PO SCH (08:21)
[2017-05-12] MEDS: FOLIC ACID 1 MG TABLET PO SCH (08:21)
[2017-05-12] MEDS: METOPROLOL TARTRATE 25 MG TABLET PO SCH ×2 (08:21→16:21)
[2017-05-12] MEDS: ENOXAPARIN SODIUM 100 MG/ML DISP.SYRIN SQ SCH ×2 (08:23→21:00)
[2017-05-12] MEDS: NICOTINE PATCH (21MG) 21 MG PATCH.TD24 TD SCH (08:23)
--- NOTE | 2017-05-12 08:24 | NUR ---
RN NOTES PT NICOTINE PATCH AND LOVENOX HELD BEFORE PROCEDURE.
[2017-05-12] MEDS ORDERED: IOHEXOL-350 100 ML VIAL IV ONE (10:04)
[2017-05-12] MEDS ORDERED: CT SWABBABLE VALVE TRANS SET 1 EA INFUS.SET MC ONE (10:04)
[2017-05-12] MEDS ORDERED: IV NS 0.9% 250 ML IV ONE (10:04)
--- NOTE | 2017-05-12 10:41 | NUR ---
PT FOR CTA -DX NON STEMI/ ELEVATED TROP. CONSENT SIGNED BY PT. VSS HR 67
--- NOTE | 2017-05-12 10:42 | NUR ---
METOPROLOL 5 MG SIVP ADMINSITERED FOR HR 67.
[2017-05-12] MEDS ORDERED: METOPROLOL TARTRATE INJ 5 MG/5 ML AMPUL ONE (10:48)
--- NOTE | 2017-05-12 10:52 | NUR ---
2ND DOSE IV METOPROLOL 5MG DOSE ADMINISTERED, HR AT 63 BPM.
--- NOTE | 2017-05-12 10:55 | NUR ---
NITROGLYCERIN 0.4 MCG SPRAY ADMINISTERED; SBP WITHIN BASELINE
--- NOTE | 2017-05-12 11:00 | NUR ---
PROCEDURE COMPLETED. PT TOLERATED WELL. INSTRUCTED PT ON AFTERCARE, ORTHOSTATIC HYPOTENSION. VSS. WILL TRANSPORT BACK TO ROOM VIA ACLS PROTOCOL.
--- NOTE | 2017-05-12 11:05 | NUR ---
BEDSIDE REPORT GIVEN TO MAYLIN LAINEZ. PT AWAKE, ORIENTED VERBALIZING NEEDS DENYING CP NO S/S DISTRESS. SR ON MONITOR.
--- NOTE | 2017-05-12 11:47 | NUR ---
Social service consult requested by Dr. Mcclain for homelessness. Pt. is a 52 year old male who was admitted to [facility] for alcohol intoxication and falling in the street. ALTAF met with pt. bedside. Pt. is alert and oriented x 4. Pt. was friendly and cooperative with SW during the assessment. Pt. states he resides currently at a friend's place in [place], however he is homeless. Pt. declined retirement placement that was offered to pt. by ALTAF. Pt. stated he will go back to his friend's place in [place]. Pt. is an alcoholic and drinks as many beers as he can daily. Pt. has been in several alcohol treatment programs in the past. Pt. is interested in going to detox if accepted to a rehab. ALTAF informed pt. she will attempt to find a detox that can accept pt. upon discharge from the hospital. ALTAF also made pt. aware that due to his [employer] health insurance, a lot the alcohol treatment programs have a wait list. Pt. understood. Pt. is willing to accept Alcohol rehab referrals upon discharge if not accepted to a facility. Pt. will require bus tokens to get to his friend's place in [place] if not accepted into an alcohol treatment program. ALTAF gave pt. a Tshirt upon his request. No other social service needs requested at this time. ALTAF is available if needed. ATLAF to follow up with pt. tomorrow prior to discharge to offer referrals if not accepted to an alcohol program. Addendum: 05/12/17 at 1445 by ALEXANDR SOLITARIO ALTAF contacted [facility] and left a voicemail message inquiring if they have any male openings in their detox program and requested a call back. ALTAF also contacted [facility] alcohol and drug rehab program and spoke to Thomas regarding accepting pt. into their program. Thomas informed ALTAF they are an outpatient intensive treatment program. Pt. is interested in inpatient and pt. currently resides in [place] which will be difficult for pt. to come to [place] for treatment daily.
[2017-05-12] MEDS: HYDROCODONE/APAP 5/325MG 1 EACH TABLET PO PRN (14:38)
--- NOTE | 2017-05-12 18:15 | NUR ---
RN NOTES PT REMAINED IN STABLE CONDITION THROUGHOUT THE SHIFT, NO SIGNIFICANT CHANGES. PT TOLERATING CT SCAN WITH NO ISSUES. NO COMPLAINTS OF PAIN AT THIS TIME. ALL NEEDS MET. NITRIC ACID PLANT OPERATOR CONSULT COMPLETE. BED LOCKED AND IN LOWEST POSITION, CALL LIGHT WITHIN REACH WILL ENDORSE TO ONCOMING SHIFT.
--- NOTE | 2017-05-12 19:05 | NUR ---
RN OPENING NOTES PATIENT A/A/O X3, ABLE TO MAKE NEEDS KNOWN. BREATHING EVEN & UNLABORED, ON ROOM AIR. DENIES SOB OR DIFFICULTY BREATHING. PULSES PRESENT. RIGHT UPPER ARM MIDLINE & RIGHT HAND IV #22 INTACT & PATENT W/ DRESSING CDI, SALINE LOCKED. DENIES ANY CHEST PAIN OR DISCOMFORT @ THIS TIME. SAFETY MEASURES IN PLACE W/ SIDE RAILS UP, BED LOCKED & IN LOWEST POSITION & CALL LIGHT WITHIN REACH. WILL CONTINUE TO MONITOR.
[2017-05-13 04:00] VITALS: BP 144/92
[2017-05-13] MEDS: hydrALAZINE HCL 25 MG TABLET PO SCH (04:36)
[2017-05-13] MEDS: CHLORDIAZEPOXIDE HCL 25 MG CAPSULE PO PRN (04:40)
--- NOTE | 2017-05-13 07:30 | NUR ---
MICA SPLITTER INITIAL NOTES RECEIVED PATIENT ASLEEP IN BED, EASY TO AROUSE, ABLE TO MAKE NEEDS KNOWN. BREATHING EVEN & UNLABORED, ON ROOM AIR. DENIES SOB OR DIFFICULTY BREATHING. PULSES PRESENT. RIGHT UPPER ARM MIDLINE, PATENT W/ DRESSING CDI, SALINE LOCKED. DENIES ANY CHEST PAIN OR DISCOMFORT @ THIS TIME. SAFETY MEASURES IN PLACE W/ SIDE RAILS UP, BED LOCKED & IN LOWEST POSITION & CALL LIGHT WITHIN REACH. PATIENT TO BE TRANSFERRED TO [facility] FOR CARDIAC CATH PROCEDURE. WILL CONTINUE TO MONITOR.
[2017-05-13 08:00] VITALS: BP 130/82
[2017-05-13 09:00] VITALS: BP 130/82
[2017-05-13] MEDS: PHENYTOIN EXTENDED RELEASE 100 MG CAPSULE PO SCH (09:00)
[2017-05-13] MEDS: THIAMINE HCL 100 MG TABLET PO SCH (09:00)
[2017-05-13] MEDS: AMLODIPINE BESYLATE 10 MG TABLET PO SCH (09:00)
[2017-05-13] MEDS: ENOXAPARIN SODIUM 100 MG/ML DISP.SYRIN SQ SCH (09:00)
[2017-05-13] MEDS: FOLIC ACID 1 MG TABLET PO SCH (09:00)
[2017-05-13] MEDS: NICOTINE PATCH (21MG) 21 MG PATCH.TD24 TD SCH (09:00)
[2017-05-13] MEDS: METOPROLOL TARTRATE 25 MG TABLET PO SCH (09:00)
--- NOTE | 2017-05-13 10:30 | NUR ---
GRADING CLERK NOTES CALLED [facility] TO GIVE REPORT FOR PATIENT TRANSFER FOR CARDIAC CATH, ALL TEACHING DONE, CONSENT SIGNED, PATIENT VERBALIZED UNDERSTANDING.
--- NOTE | 2017-05-13 12:00 | NUR ---
PASTRY COOK HELPER NOTES AMBULANCE ARRIVED TO TAKE PATIENT TO [facility], PATIENT MAY RETURN IF NO INTERVENTIONS TAKEN DURING PROCEDURE, ALL PAPERWORK SIGNED, BELONGINGS LIST SIGNED, REPORT GIVEN.
[2017-05-13] MEDS ORDERED: ONDANSETRON HCL/PF 4 MG/2 ML VIAL ONE (15:19)
--- NOTE | 2017-05-13 16:18 | NUR ---
spoke with mary ann from [facility] ,patient staying in [facility].
== END 2017-05-13 16:32 | DRG 190 ==
LOC: ER 13:18 → TELE1 15:13 → MEDSG1 05-12 10:39
PROVIDERS: ADMIT Internal Medicine; ATTEND Internal Medicine
PROC: B546ZZA Ultrasonography of Right Subclavian Vein, Guidance (ICD-10-PCS; principal; 2017-05-11)
DX: I21.4 Non-ST elevation (NSTEMI) myocardial infarction (principal); G92 Toxic encephalopathy; R56.9 Unspecified convulsions; E44.1 Mild protein-calorie malnutrition; F10.239 Alcohol dependence with withdrawal, unspecified; I10 Essential (primary) hypertension; Z59.0 Homelessness; Z79.899 Other long term (current) drug therapy; Y90.8 Blood alcohol level of 240 mg/100 ml or more; F10.229 Alcohol dependence with intoxication, unspecified; W19.XXXA Unspecified fall, initial encounter; Y92.9 Unspecified place or not applicable; E78.1 Pure hyperglyceridemia; E78.5 Hyperlipidemia, unspecified; F17.200 Nicotine dependence, unspecified, uncomplicated
CPT/HCPCS: 36415; 70450-TC; 71010-TC; 75574; 80048-TC; 80053-TC; 80061-TC; 80076-TC; 80305; 81000-TC; 82306; 83735-TC; 84100-TC; 84439-TC; 84443-TC; 84484-TC; 85025-TC; 85730-TC; 87081-TC; 93307-TC; A4606; G0480; J1650; J1940; J2270; J2405; J3490; J7030; J7050; Q9967; Z7610

== ENCOUNTER 2017-07-14 11:49 | Inpatient (IN) | payer MEDICAID ==
[~2017-07-14] VITALS: Ht 182.9 cm; Wt 99.8 kg
[~2017-07-14 11:49] MED LIST changes: +FOLI1TAB16 PO; -Folic Acid PO; +HYDR-4076 PO; -Hydralazine Hcl PO
--- NOTE | 2017-07-14 11:52 | NUR ---
PT CL FROM THE STREETS TO ER BED 14. C/O LOWER ABDOMINAL PAIN. RASH NOTED. STATES BURNING PAIN. GOWNED AND PLACED ON MONITOR. DENIES ANY OTHER COMPLAINTS AT THIS TIME. AWAITING MD MUNGUIA.
--- NOTE | 2017-07-14 12:24 | NUR ---
ANNY JORDAN AT BEDSIDE FOR EVAL.
[2017-07-14] MEDS ORDERED: PIPERACILLIN /TAZOBACTAM 3.375 G in IV D5W 50 ML IV ONE (12:30)
[2017-07-14] MEDS ORDERED: PANTOPRAZOLE 40 MG VIAL IV ONE (12:30)
[2017-07-14] MEDS ORDERED: VANCOMYCIN 1 GM in IV D5W 250 ML IV ONE (12:30)
[2017-07-14] MEDS ORDERED: ONDANSETRON HCL/PF 4 MG/2 ML VIAL IVP ONE (12:30)
[2017-07-14] MEDS ORDERED: KETOROLAC TROMETHAMINE INJ 30 MG/ML VIAL IV ONE (12:30)
[2017-07-14] MEDS ORDERED: IV NS 0.9% 1,000 ML BAG IV ONE (12:30)
[2017-07-14] MEDS ORDERED: MORPHINE SULFATE INJ 2 MG/ML DISP.SYRIN IV ONE (12:30)
--- NOTE | 2017-07-14 12:45 | NUR ---
IV LINE STARTED BLOOD DRAWN AND SENT TO LAB.
[2017-07-14 12:50] LABS: BASOPHILS # (AUTO) 0.2 /CMM (0.0-0.2); BASOPHILS % (AUTO) 2.2 % (0.0-2.0); EOSINOPHILS # (AUTO) 0.1 /CMM (0.0-0.7); EOSINOPHILS % (AUTO) 1.2 % (0.0-6.0); HEMATOCRIT 43 % (39-51); HEMOGLOBIN 14.6 g/dL (13.5-17.5); LYMPHOCYTES # (AUTO) 2.3 /CMM (0.8-4.8); LYMPHOCYTES % (AUTO) 25.2 % (20.0-44.0); MEAN CORPUSCULAR HEMOGLOBIN 32 PG (26.0-33.0); MEAN CORPUSCULAR HGB CONC 34 g/dl (31.0-36.0); MEAN CORPUSCULAR VOLUME 95 fL (80-96); MONOCYTES # (AUTO) 0.7 /CMM (0.1-1.30); MONOCYTES % (AUTO) 7.6 % (2.0-12.0); NEUTROPHILS % (AUTO) 63.8 % (43.0-81.0); PLATELET COUNT (AUTO) 218 /CMM (150-450); RDW COEFFICIENT OF VARIATION 15.7 (11.5-15.0); RED BLOOD CELL COUNT(AUTO) 4.55 MIL/uL (4.5-6.0); WHITE BLOOD COUNT (AUTO) 9.3 K/uL (4.3-11.0)
[2017-07-14] MEDS ORDERED: KETOROLAC TROMETHAMINE 15 MG/ML VIAL ONE (12:51)
[2017-07-14] MEDS ORDERED: MORPHINE SULFATE INJ 4 MG/ML DISP.SYRIN ONE (12:52)
[2017-07-14] MEDS ORDERED: PANTOPRAZOLE 40 MG VIAL ONE (12:52)
[2017-07-14] MEDS ORDERED: ONDANSETRON HCL/PF 4 MG/2 ML VIAL ONE (12:52)
[2017-07-14 12:58] LABS: CALCIUM, SERUM 9.1 mg/dL (8.5-10.1); CARBON DIOXIDE 27 mmol/L (21-32); CHLORIDE 96 mmol/L (98-107); CREATININE 0.8 mg/dL (0.6-1.3); GLUCOSE 87 mg/dL (74-106); POTASSIUM 4.3 mmol/L (3.5-5.1); SODIUM SERUM 134 mmol/L (136-145); UREA NITROGEN, BLOOD 5 mg/dL (7-18)
[2017-07-14] MEDS ORDERED: LORAZEPAM INJ 2 MG/ML VIAL IV ONE (13:00)
--- NOTE | 2017-07-14 13:00 | NUR ---
PATIENT'S ATIVAN 2MG IV ORDER WAS CANCELLED BY . ATIVAN THAT WAS PULLED OUT FROM PATIENT [id number] WAS WASTED AND WITNESSED BY FATOU CAAL
[2017-07-14 13:04] LABS: ALANINE AMINOTRANSFERASE 67 U/L (12-78); ALBUMIN 3.4 g/dL (3.4-5.0); ALKALINE PHOSPHATASE 111 U/L (46-116); ASPARTATE AMINOTRANSFERASE 77 U/L (15-37); BILIRUBIN,DIRECT 0.1 mg/dL (0.0-0.2); BILIRUBIN,TOTAL 0.3 mg/dL (0.2-1.0); TOTAL PROTEIN, SERUM 8.3 g/dL (6.4-8.2)
[2017-07-14 13:06] LABS: TROPONIN I < 0.017 ng/mL (0.00-0.056)
--- NOTE | 2017-07-14 13:38 | NUR ---
CALLED NURSING SUP FOR TELE BED
--- NOTE | 2017-07-14 14:28 | NUR ---
[facility] PAGED, MIGDALIA DEAN WET AND DRY SUGAR BIN OPERATOR
--- NOTE | 2017-07-14 14:42 | NUR ---
REPORT GIVEN TO FARZANEH. PT AWAITING TRANSFER TO FLOOR.
--- NOTE | 2017-07-14 14:46 | NUR ---
[facility] REPAGED
--- NOTE | 2017-07-14 15:00 | NUR ---
LOTTERY MANAGERPEWTER CASTER NOTE PATIENT IS ALERT AND ORIENTED X4. NO PAIN NOTED AT THIS TIME. NO SOB OR DISTRESS NOTED. BROUGHT IN BY AMBULANCE FROM STREETS. IV ON LEFT AC INTACT AND PATENT NO REDNESS OR SWELLING. MULTIPLE SKIN ISSUES PRESENT, NOTED AND PLACED IN CHART, NOTIFIED WOUND CARE. HOMELESS PATIENT, NOTIFIED AIRPORT OPERATIONS SPECIALIST. AWAITING MD ORDERS. TELE MONITOR-90. WILL CONTINUE TO MONITOR THROUGHOUT SHIFT
[2017-07-14] MEDS ORDERED: MAGNESIUM HYDROXIDE 30 ML UDC PO PRN (15:30)
[2017-07-14] MEDS ORDERED: ACETAMINOPHEN 325 MG TABLET PO PRN (15:30)
[2017-07-14] MEDS ORDERED: MAG HYDROX/AL HYDROX/SIMETH 30 ML UDC PO PRN (15:30)
[2017-07-14] MEDS ORDERED: ONDANSETRON HCL/PF 4 MG/2 ML VIAL IVP PRN (15:30)
[2017-07-14] MEDS ORDERED: Z GUARD REMEDY 2 OZ OINT TP PRN (15:30)
[2017-07-14 16:42] VITALS: BP 118/63
[2017-07-14] MEDS: IV NS 0.9% 1,000 ML IV PRN (16:52)
--- NOTE | 2017-07-14 18:45 | NUR ---
RD LAB TECHNICIAN CLOSING NOTE NO NEW CHANGES AT THIS TIME. NO PAIN NOTED. NO SOB OR DISTRESS NOTED. CALL LIGHT WITHIN REACH AT ALL TIMES. SAFETY MEASURES IMPLEMENTED. IV FLUIDS RUNNING AT 75 ML/HR AT THIS TIME. ABLE TO COMMUNICATE NEEDS. LABS IN AM. WILL ENDORSE TO SLEEPING CAR SERVICE ATTENDANT NURSE FOR OTILIA
[2017-07-14] MEDS: HYDROCODONE/APAP 10/325MG 1 EA TABLET PO PRN (19:36)
--- NOTE | 2017-07-14 19:45 | NUR ---
SENIOR CONSTRUCTION MANAGER OPENING NOTES RECEIVED PT ALERT, AWAKE, VERBALLY RESPONSIVE ,ON ROOM AIR, RESPIRATIONS EVEN, UNLABORED, NO APPARENT DISTRESS NOTED. IV SITE INTACT, PATENT, CALL LIGHT WITHIN REACH, BED LOCKED IN LOWEST POSITION.DENIES ANY DISCOMFORT AT THIS TIME. ATTENDED ALL NEEDS.WILL CONTINUE TO MONITOR ACCORDINGLY.
[2017-07-14 20:00] VITALS: BP 117/58
[2017-07-14] MEDS: ENOXAPARIN SODIUM 40 MG/0.4 ML DISP.SYRIN SQ SCH (21:57)
[2017-07-14 22:00] VITALS: BP 117/58
[2017-07-15] VITALS: BP 153/79
[2017-07-15] MEDS: PIPERACILLIN /TAZOBACTAM 3.375 G in IV D5W 50 ML IV SCH ×4 (00:01→17:10)
[2017-07-15] MEDS: HYDROCODONE/APAP 10/325MG 1 EA TABLET PO PRN ×3 (00:09→17:21)
[2017-07-15] MEDS ORDERED: VANCOMYCIN 1 GM VIAL ONE (01:32)
[2017-07-15] MEDS: VANCOMYCIN 1.25 GM in IV D5W 500 ML IV SCH ×2 (01:56→14:35)
[2017-07-15 04:00] VITALS: BP 151/87
--- NOTE | 2017-07-15 06:50 | NUR ---
FICTION WRITER CLOSING NOTES PT IN BED AWAKE,ALERT,VERBALLY RESPONSIVE, ON ROOM AIR, RESPIRATIONS EVEN, UNLABORED,NO APPARENT DISTRESS NOTED. IV SITE INTACT, PATENT. CALL LIGHT WITHIN REACH.ATTENDED ALL NEEDS. WILL CONTINUE TO MONITOR ACCORDINGLY
[2017-07-15] MEDS: IV NS 0.9% 1,000 ML IV PRN (07:13)
[2017-07-15 08:00] VITALS: BP_SYST 131; BP_SYST 151; BP_DIAS 82
--- NOTE | 2017-07-15 08:11 | NUR ---
MOLDER FLOOR OPENING NOTE RECEIVED BEDSIDE SBAR REPORT ON PATIENT. PATIENT IS A/O X3, COOPERATIVE, AWAKE AND RESPONSIVE. DENIES PAIN/DISCOMFORT AT THIS TIME. PATIENT IS IN BED. BED IS LOCKED IN LOWEST POSITION, SIDE RAILS UP X3, BED ALARM IS ON. ZAID LIGHT WITHIN REACH. EDUCATED TO CALL FOR ASSISTANCE USING THE CALL LIGHT. VERBALIZED UNDERSTANDING. ALL NEEDS ARE MET AT THIS TIME, WILL CONTINUE TO ASSESS/MONITOR THROUGHOUT THE SHIFT.
[2017-07-15 09:05] LABS: CALCIUM, SERUM 8.6 mg/dL (8.5-10.1); CREATININE 0.8 mg/dL (0.6-1.3); MAGNESIUM 1.5 mg/dL (1.8-2.4); PHOSPHORUS 4.1 mg/dL (2.5-4.9); POTASSIUM 4.3 mmol/L (3.5-5.1)
[2017-07-15 09:06] LABS: THYROID STIMULATING HORMONE 2.334 uIU/mL (0.358-3.74)
--- NOTE | 2017-07-15 09:47 | NUR ---
WOUND CARE CONSULT: PT REFUSED FULL SKIN ASSESSMENT. PT NOTED TO HAVE SKIN CONDITION OF ABDOMEN, GROIN AND INNER THIGHS WITH CRUSTED PEELING SKIN. DEFER TO MD. WILL SEE PRN. RECOMMENDATIONS MADE FOR SKIN PROTECTION AND DISCUSSED WITH NURSING STAFF.
[2017-07-15 10:15] LABS: BASOPHILS # (AUTO) 0.1 /CMM (0.0-0.2); BASOPHILS % (AUTO) 1.8 % (0.0-2.0); EOSINOPHILS # (AUTO) 0.2 /CMM (0.0-0.7); EOSINOPHILS % (AUTO) 2.4 % (0.0-6.0); HEMATOCRIT 35 % (39-51); HEMOGLOBIN 12.1 g/dL (13.5-17.5); LYMPHOCYTES # (AUTO) 1.7 /CMM (0.8-4.8); LYMPHOCYTES % (AUTO) 25.1 % (20.0-44.0); MEAN CORPUSCULAR HEMOGLOBIN 33 PG (26.0-33.0); MEAN CORPUSCULAR HGB CONC 34 g/dl (31.0-36.0); MEAN CORPUSCULAR VOLUME 96 fL (80-96); MONOCYTES # (AUTO) 0.5 /CMM (0.1-1.30); MONOCYTES % (AUTO) 7.2 % (2.0-12.0); NEUTROPHILS # (AUTO) 4.2 /CMM (1.8-8.9); NEUTROPHILS % (AUTO) 63.5 % (43.0-81.0); PLATELET COUNT (AUTO) 130 /CMM (150-450); RDW COEFFICIENT OF VARIATION 16.5 (11.5-15.0); RED BLOOD CELL COUNT(AUTO) 3.69 MIL/uL (4.5-6.0); WHITE BLOOD COUNT (AUTO) 6.6 K/uL (4.3-11.0)
--- NOTE | 2017-07-15 11:40 | NUR ---
Social service consult requested by [facility] RAFAELA Mackey for homelessness. Pt. is a 52 year old male who was admitted to [facility] for cellulitis. ALTAF met with pt. bedside. SW is familiar with pt. from a previous admission in April 2017. Pt. is alert and oriented x 4. Pt. was friendly and cooperative with SW during the assessment. Pt. appeared disheveled and had dirt under his finger nails. Pt. states every now and then he resides at a friend's place in [place], however he is homeless and has been staying on the streets. Pt. is an alcoholic and drinks as many beers as he can daily. Pt. has been in several alcohol treatment programs in the past. The last program pt. was is [facility] in [place] a couple of years ago. Pt. is interested in going to detox if accepted to a rehab. ALTAF informed pt. she will attempt to find a detox that can accept pt. upon discharge from the hospital. ALTAF also made pt. aware that due to his [employer] health insurance, a lot the alcohol treatment programs have a wait list. Pt. understood. Pt. is willing to accept Alcohol rehab referrals upon discharge if not accepted to a facility. ALTAF contacted [facility] and left a voicemail message for incident coordinator Madelin Alba [phone].
[2017-07-15 12:03] LABS: EOSINOPHILS % (MANUAL) 2 % (0-4); LYMPHOCYTES % (MANUAL) 21 % (16-48); MONOCYTES % (MANUAL) 6 % (0-11.0); NEUTROPHILS % (MANUAL) 71 (42-76)
[2017-07-15] MEDS: LORAZEPAM INJ 2 MG/ML VIAL IV PRN ×2 (12:46→17:15)
[2017-07-15] MEDS ORDERED: FEE PK DOSING 1 MIN EA MC ONE (12:50)
--- NOTE | 2017-07-15 12:50 | NUR ---
PATIENT PRESENTED WITH FINE HAND TREMORS AND REPORTED ANXIETY. LAST ALCOHOL DRIN REPORTED 52 HOURS AGO. ADMINISTERED ATIVAN ORDERED.
--- NOTE | 2017-07-15 14:33 | NUR ---
CALLED PHARMACY TO SEND VANCOMYCIN TO THE FLOOR
[2017-07-15] MEDS: HYDROCODONE/APAP 5/325MG 1 EACH TABLET PO PRN ×2 (14:44→19:49)
--- NOTE | 2017-07-15 14:49 | NUR ---
PATIENT COMPLAINS OF SEVERE PAIN IN LOW BACK. PRN NORCO ADMINISTERED ORDERED.
[2017-07-15 16:00] VITALS: BP 155/90
[2017-07-15] MEDS: LACTOBACILLUS RHAMNOSUS GG 1 EACH CAP.SPRINK PO SCH (17:15)
--- NOTE | 2017-07-15 17:22 | NUR ---
PATIENT REPORTED ANXIETY, TREMORS AND PAIN. PRN NORCO AND PRN ATIVAN ADMINISTERED PRESCRIBED.
--- NOTE | 2017-07-15 19:25 | NUR ---
MS RN CLOSING NOTE PATIENT IS A/O X3, COOPERATIVE, AWAKE AND RESPONSIVE. DENIES PAIN/DISCOMFORT AT THIS TIME. PATIENT IS IN BED. BED IS LOCKED IN LOWEST POSITION, SIDE RAILS UP X3, BED ALARM IS ON. ZAID LIGHT WITHIN REACH. EDUCATED TO CALL FOR ASSISTANCE USING THE CALL LIGHT. VERBALIZED UNDERSTANDING. ALL NEEDS ARE MET AT THIS TIME, WILL ENDORSE TO THE LAY MIDWIFE NURSE FOR OTILIA.
--- NOTE | 2017-07-15 19:52 | NUR ---
ms/rn opening notes Patient is alert, oriented x3, able to verbalize needs, pain reported with guarding and grimace , breakthrough pain to given , provided fluids and snacks, IV on left ac, patent w/no s/s of infiltration, kept comfortable.
[2017-07-15 20:00] VITALS: BP 167/86
[2017-07-15 20:35] VITALS: BP 167/86
[2017-07-15] MEDS: ENOXAPARIN SODIUM 40 MG/0.4 ML DISP.SYRIN SQ SCH (21:19)
[2017-07-16] MEDS: PIPERACILLIN /TAZOBACTAM 3.375 G in IV D5W 50 ML IV SCH ×4 (00:19→19:03)
[2017-07-16] MEDS: VANCOMYCIN 1.25 GM in IV D5W 500 ML IV SCH ×2 (01:59→16:35)
[2017-07-16] MEDS: HYDROCODONE/APAP 10/325MG 1 EA TABLET PO PRN ×3 (02:16→19:03)
--- NOTE | 2017-07-16 02:16 | NUR ---
ms/rn notes patient reported severe pain in abdomen /, pain medication norco 10-325 mg po given will monitor effectiveness.
--- NOTE | 2017-07-16 07:13 | NUR ---
MS/RN NOTES PATIENT ALERT, ABLE TO VERBALIZE NEEDS, PAIN MEDICATION PROVIDED, IV ATB INFUSED WITH NO S/S OF ADVERSE REACTION, CALL LIGHTS WITHIN REACH, BED IN LOCK POSITION, WILL ENDFORSE TO AM RN FOR OTILIA.
--- NOTE | 2017-07-16 07:28 | NUR ---
ms/rn notes patient in bed, awake, alert, verbalize needs at all times, on pain management monitoring, assisted and provided needs, keep safe and comfortable, bed in lock position, bed alarm on, will endorse to am rn for estefany.
[2017-07-16 08:00] VITALS: BP_SYST 152; BP_SYST 158; BP_DIAS 105; BP_DIAS 98
[2017-07-16 08:56] LABS: CALCIUM, SERUM 8.9 mg/dL (8.5-10.1); CREATININE 0.7 mg/dL (0.6-1.3); POTASSIUM 3.9 mmol/L (3.5-5.1)
[2017-07-16] MEDS: LACTOBACILLUS RHAMNOSUS GG 1 EACH CAP.SPRINK PO SCH ×2 (09:57→16:34)
--- NOTE | 2017-07-16 09:59 | NUR ---
PATIENT COMPLAINS PAIN. PAIN MEDICATION ADMINISTERED PRESCRIBED.
--- NOTE | 2017-07-16 10:57 | NUR ---
ALTAF sent referral packet via email to Madelin Alba, intake metal extrusion supervisor at [facility] (Madelin Alba [email or web address]). Madelin informed ALTAF she will review the packet and follow up with ALTAF.
--- NOTE | 2017-07-16 11:36 | NUR ---
ALTAF met with pt. bedside to discuss discharge plan. SW informed pt. she has referred him to [facility] for alcohol treatment and is awaiting a response from them. Pt. states he will go to the [facility] if he is not accepted into [facility].
[2017-07-16] MEDS: IV NS 0.9% 1,000 ML IV PRN (12:48)
--- NOTE | 2017-07-16 14:15 | NUR ---
Came to administer Vanco as ordered. Patient stated "I am sick of all this drugs, they arent helping me. I dont want it". Risks and benefits discussed. PAtient stated he might reconsider agreeing to antibiotic after he takes a nap. Will come back to administer.
[2017-07-16 16:00] VITALS: BP 157/99
--- NOTE | 2017-07-16 16:25 | NUR ---
Agreed for [facility] administration.
[2017-07-16] MEDS: LORAZEPAM INJ 2 MG/ML VIAL IV PRN (16:39)
--- NOTE | 2017-07-16 16:46 | NUR ---
Patient presents with fine hand tremors and report anxiety. Ativan administered as ordered.
--- NOTE | 2017-07-16 19:20 | NUR ---
BIOLOGICAL SCIENCE AIDE CLOSING NOTE RECEIVED BEDSIDE SBAR REPORT ON PATIENT. PATIENT IS A/O X3, COOPERATIVE, AWAKE AND RESPONSIVE. DENIES PAIN/DISCOMFORT AT THIS TIME. PATIENT IS IN BED. BED IS LOCKED IN LOWEST POSITION, SIDE RAILS UP X3, BED ALARM IS ON. ZAID LIGHT WITHIN REACH. EDUCATED TO CALL FOR ASSISTANCE USING THE CALL LIGHT. VERBALIZED UNDERSTANDING. ALL NEEDS ARE MET AT THIS TIME, WILL ENDORSE TO THE FAMILY DAY CARER NURSE FOR OTILIA. Addendum: 07/16/17 at 1925 by JESSI FLANAGAN RN MS RN CLOSING NOTE
[2017-07-16 20:00] VITALS: BP 169/90
--- NOTE | 2017-07-16 20:00 | NUR ---
ms/rn opening notes patient in bed, alert, orienrted x2, require frequent reorientation to place and time, remind to use call lights for assistance for safety, iv site removed, monitoring for pain will monitor and administer as needed med. call lights within reach, bed in lock position, attend to needs, warm blanket and snacks.
[2017-07-16 20:09] VITALS: BP 169/90
[2017-07-16] MEDS: ENOXAPARIN SODIUM 40 MG/0.4 ML DISP.SYRIN SQ SCH (22:28)
[2017-07-17] MEDS: PIPERACILLIN /TAZOBACTAM 3.375 G in IV D5W 50 ML IV SCH ×2 (00:05→05:45)
[2017-07-17] MEDS: VANCOMYCIN 1.25 GM in IV D5W 500 ML IV SCH ×2 (03:09→14:35)
--- NOTE | 2017-07-17 06:29 | NUR ---
ms/rn closing notes patient in bed, resting comfortably in bed, respirations even and unlabores, iv antibiotic infused, with no s/s of adverse reaction, call lights within reach, fluids at bed side, snacks provided, kept warmth, cooperative to care but require frequent reorientation to time and place, safety measures, frequent rounds monitoring, will endorse to am rn for estefany.
--- NOTE | 2017-07-17 07:00 | NUR ---
MS RN OPENING NOTES RECEIVED PATIENT IN BED ALERT ORIENTED X4, HOB ELEVATED. NO SOB NOTED. NO ACUTE DISTRESS NOTED. BREATHING UNLABORED. IV ACCESS PATENT PATENT AND INTACT. NO REDNESS OR SWELLING ON THE SITE. SAFETY MEASURES IN PLACE. CALL LIGHT WITHIN REACH.WILL CONTINUE TO MONITOR ACCORDINGLY.
[2017-07-17 08:00] VITALS: BP 151/102
[2017-07-17] MEDS: LACTOBACILLUS RHAMNOSUS GG 1 EACH CAP.SPRINK PO SCH ×2 (08:51→17:21)
[2017-07-17 10:35] LABS: CALCIUM, SERUM 9.6 mg/dL (8.5-10.1); CREATININE 0.9 mg/dL (0.6-1.3); POTASSIUM 4.1 mmol/L (3.5-5.1)
[2017-07-17] MEDS: PIPERACILLIN /TAZOBACTAM 3.375 G in IV NS 0.9% 50 ML IV SCH ×3 (12:30→23:51)
[2017-07-17] MEDS ORDERED: SULF1TAB48 PO (14:27)
[2017-07-17 16:00] VITALS: BP 152/91
--- NOTE | 2017-07-17 16:15 | NUR ---
ALTAF called Noemy at [facility] who informed SW they will accept the pt. tomorrow morning by 8AM. ALTAF informed Josie Salguero will be faxing her at , the wound progress note and discharge summary. ALTAF met with pt. and informed him that he was accepted at [facility] and will be discharged tomorrow at 8AM. Pt. began crying and said " thank you, I can change my life around, my kids don't even talk to me". ALTAF provided emotional support and encouraged pt. to complete his treatment at [facility]. ALTAF also informed him that she has arranged for taxi transportation for the pt. to go to [place] and an early breakfast before he leaves. ALTAF updated RAFAELA Mason regarding pt's discharge plan.
[2017-07-17] MEDS: HYDROCODONE/APAP 5/325MG 1 EACH TABLET PO PRN (18:21)
--- NOTE | 2017-07-17 19:00 | NUR ---
MS RN CLOSING NOTES PATIENT IN BED AWAKE, VERBALLY RESPONSIVE. NO SOB NOTED. NO ACUTE DISTRESS NOTED. BREATHING UNLABORED. IV ACCESS PATENT PATENT AND INTACT. NO REDNESS OR SWELLING ON THE SITE.DUE MEDICATIONS GIVEN, NO ASE NOTED. NEEDS ATTENDED. SAFETY MEASURES IN PLACE. CALL LIGHT WITHIN REACH.ENDORSED TO DISTRICT LOSS PREVENTION MANAGER NURSE FOR CONTINUITY OF CARE.
--- NOTE | 2017-07-17 19:30 | NUR ---
RN NOTES RECEIVED PATIENT IN BED AWAKE, AO X 3, ABLE TO MAKE NEEDS KNOWN. NO ACUTE DISTRESS NOTED. DENIES ANY PAIN AT THIS TIME. IV SITE PATENT, INTACT; IVF INFUSING ORDERED. SAFETY REMINDERS GIVEN. ON LOW BED WITH BILATERAL UPPER SIDE RAILS UP. CALL VILLAGOMEZ WITHIN EASY REACH. WILL CONTINUE TO MONITOR.
[2017-07-17 20:00] VITALS: BP 157/94
[2017-07-17] MEDS: IV NS 0.9% 1,000 ML IV PRN (21:17)
[2017-07-17] MEDS: ENOXAPARIN SODIUM 40 MG/0.4 ML DISP.SYRIN SQ SCH (21:18)
[2017-07-17] MEDS: HYDROCODONE/APAP 10/325MG 1 EA TABLET PO PRN (21:21)
[2017-07-18] MEDS: VANCOMYCIN 1.25 GM in IV D5W 500 ML IV SCH (02:50)
[2017-07-18] MEDS: PIPERACILLIN /TAZOBACTAM 3.375 G in IV NS 0.9% 50 ML IV SCH (05:36)
--- NOTE | 2017-07-18 06:30 | NUR ---
RN NOTES PATIENT ASLEEP, EASILY AROUSABLE. RESPIRATIONS EVEN. NO SIGNS OF PAIN NOTED. DUE MEDS GIVEN WITH NO ASE NOTED. NEEDS ATTENDED. SAFETY PRECAUTIONS AND COMFORT MEASURES IN PLACE. WILL GIVE REPORT TO DAY SHIFT FOR CONTINUITY OF CARE.
--- NOTE | 2017-07-18 07:00 | NUR ---
MS RN NOTES RECEIVED PATIENT SITTING IN BED HAVING BREAKFAST, ALERT ORIENTED X4. NO SOB NOTED. NO ACUTE DISTRESS NOTED. BREATHING UNLABORED. IV ACCESS PATENT AND INTACT. SAFETY MEASURES IN PLACE. WILL CONTINUE TO MONITOR ACCORDINGLY.
[2017-07-18 07:59] LABS: CALCIUM, SERUM 8.7 mg/dL (8.5-10.1); CREATININE 0.9 mg/dL (0.6-1.3)
--- NOTE | 2017-07-18 08:15 | NUR ---
MS RN DISCHARGED NOTES PATIENT DISCHARGED WITH STABLE VS. NO ACUTE DISTRESS NOTED. DISCHARGE INSTRUCTIONS GIVEN TO THE PATIENT , VERBALIZED UNDERSTANDING. ALL BELONGINGS ACCOUNTED FOR. IV ACCESS REMOVED ON THE LEFT HAND , NO S/SX OF BLEEDING OR SWELLING. WHEELED TO THE LOBBY, ASSISTED TO A CAR BY RN AND REEL ASSEMBLER. [facility] ARRANGED BY CASE MANAGEMENT AWARE OF PATIENT ARRIVAL.
[2017-07-18 08:47] VITALS: BP 161/97
== END 2017-07-18 08:17 | disposition home or self-care (01) | DRG 383 ==
LOC: ER 11:51 → TELE 15:05 → MED 07-15 10:44
PROVIDERS: ADMIT Nurse Practitioner Acute Care; ATTEND Nurse Practitioner Acute Care
DX: L03.311 Cellulitis of abdominal wall (principal); G92 Toxic encephalopathy; E87.2 Acidosis; E87.1 Hypo-osmolality and hyponatremia; K70.10 Alcoholic hepatitis without ascites; E11.9 Type 2 diabetes mellitus without complications; E78.5 Hyperlipidemia, unspecified; E86.1 Hypovolemia; I25.10 Atherosclerotic heart disease of native coronary artery without angina pectoris; F10.129 Alcohol abuse with intoxication, unspecified; I10 Essential (primary) hypertension; Y90.7 Blood alcohol level of 200-239 mg/100 ml; I25.2 Old myocardial infarction; Z59.0 Homelessness; Z79.899 Other long term (current) drug therapy; Z72.0 Tobacco use
CPT/HCPCS: 36415; 71045-TC; 80048-TC; 80061-TC; 80076-TC; 80202-TC; 83605-TC; 83735-TC; 84100-TC; 84443-TC; 84484-TC; 85025-TC; 87040-TC; A4216; A4606; C9113; G0480; J1650; J1885; J2060; J2270; J2405; J2543; J3370; J7030; J7060; Z7610

== ENCOUNTER 2017-08-21 18:02 | Emergency (ER) | payer MEDICAID ==
[~2017-08-21] VITALS: Ht 177.8 cm; Wt 103.4 kg
[~2017-08-21 18:02] MED LIST changes: -AMLO10TA2 PO; -FOLI1TAB16 PO; -HYDR-4076 PO; -PHEN100C4 PO; +SULF1TAB48 PO; -THIA100T13 PO
--- NOTE | 2017-08-21 18:09 | NUR ---
BIBRA S/P SEIZURE WITH GLF. PATIENT HAS HEAD LACERATION D/T FALL. NO EXCESSIVE BLEEDING NOTED. PT. ALSO BIT HIS TONGUE. PATIENT ALSO C/O NECK PAIN, ARRIVED WITH C-COLLAR IN PLACE. PATIENT IS CURRENTLY A/OX 3. BREATHING EVEN AND UNLABORED. NO SOB, NAD. VITALS STABLE. SAFETY AND COMFORT MEASURES IN PLACE. AWAITING MD ORDERS.
[2017-08-21] MEDS ORDERED: IV NS 0.9% 1,000 ML BAG IV ONE (18:30)
[2017-08-21] MEDS ORDERED: LEVETIRACETAM (500MG) 1,000 MG in IV NS 0.9% 100 ML IV ONE (18:30)
--- NOTE | 2017-08-21 18:45 | NUR ---
NEW IV STARTED ON RAC, 20G. BLOOD DRAWN AND SENT TO LAB.
--- NOTE | 2017-08-21 18:58 | NUR ---
PATIENT TAKEN TO CT VIA STRETCHER.
[2017-08-21 19:03] LABS: BASOPHILS # (AUTO) 0.1 /CMM (0.0-0.2); BASOPHILS % (AUTO) 1.3 % (0.0-2.0); EOSINOPHILS # (AUTO) 0.1 /CMM (0.0-0.7); HEMATOCRIT 34 % (39-51); HEMOGLOBIN 12.1 g/dL (13.5-17.5); LYMPHOCYTES # (AUTO) 2.7 /CMM (0.8-4.8); LYMPHOCYTES % (AUTO) 40.7 % (20.0-44.0); MEAN CORPUSCULAR HEMOGLOBIN 33 PG (26.0-33.0); MEAN CORPUSCULAR HGB CONC 36 g/dl (31.0-36.0); MEAN CORPUSCULAR VOLUME 93 fL (80-96); MONOCYTES # (AUTO) 0.6 /CMM (0.1-1.30); MONOCYTES % (AUTO) 8.5 % (2.0-12.0); NEUTROPHILS # (AUTO) 3.2 /CMM (1.8-8.9); NEUTROPHILS % (AUTO) 47.5 % (43.0-81.0); PLATELET COUNT (AUTO) 282 /CMM (150-450); RDW COEFFICIENT OF VARIATION 15.2 (11.5-15.0); RED BLOOD CELL COUNT(AUTO) 3.62 MIL/uL (4.5-6.0); WHITE BLOOD COUNT (AUTO) 6.7 K/uL (4.3-11.0)
[2017-08-21 19:06] LABS: CALCIUM, SERUM 8.3 mg/dL (8.5-10.1); CREATININE 0.8 mg/dL (0.6-1.3); POTASSIUM 4.3 mmol/L (3.5-5.1)
--- NOTE | 2017-08-21 19:10 | NUR ---
PATIENT RETURNED FROM CT IN STABLE CONDITION.
--- NOTE | 2017-08-21 19:30 | NUR ---
REPORT GIVEN TO ANTONIETTA LAINEZ FOR OTILIA.
--- NOTE | 2017-08-21 21:02 | NUR ---
PT SLEEPING COMFORTABLY IN BED
--- NOTE | 2017-08-21 21:55 | NUR ---
PT STILL SLEEPING. ON/OFF GROANS
--- NOTE | 2017-08-21 22:52 | NUR ---
PT UP USING URINAL
[2017-08-22 04:19] VITALS: BP 148/78
== END 2017-08-22 04:20 | disposition home or self-care (01) ==
LOC: ER 18:04
DX: S00.01XA Abrasion of scalp, initial encounter (principal); F10.129 Alcohol abuse with intoxication, unspecified; G40.909 Epilepsy, unspecified, not intractable, without status epilepticus; I10 Essential (primary) hypertension; E11.9 Type 2 diabetes mellitus without complications; F17.200 Nicotine dependence, unspecified, uncomplicated; Z60.2 Problems related to living alone; Z91.14 Patient's other noncompliance with medication regimen; X58.XXXA Exposure to other specified factors, initial encounter; Y93.89 Activity, other specified; Y92.89 Other specified places as the place of occurrence of the external cause; Y99.8 Other external cause status
CPT/HCPCS: 36415; 70450; 72125; 80048; 85025; 96361; 96374; 99285; A4606; G0480; J1953; J7030 ×2; Z7610

== ENCOUNTER 2017-08-22 16:13 | Emergency (ER) | payer MEDICAID ==
[~2017-08-22] VITALS: Ht 175.3 cm; Wt 90.7 kg
--- NOTE | 2017-08-22 16:40 | NUR ---
BIB RA C/O SEIZURE APARTMENT RENTAL AGENT. PATIENT IS CURRENTLY A/OX 4. BREATHING EVEN AND UNLABORED. NO SOB, NAD. VITALS STABLE. SAFETY AND COMFORT MEASURES IN PLACE. AWAITING MD ORDERS.
[2017-08-22 16:58] LABS: BASOPHILS % (AUTO) 0.5 % (0.0-2.0); EOSINOPHILS # (AUTO) 0.2 /CMM (0.0-0.7); EOSINOPHILS % (AUTO) 2.2 % (0.0-6.0); HEMATOCRIT 35 % (39-51); HEMOGLOBIN 12.1 g/dL (13.5-17.5); LYMPHOCYTES # (AUTO) 2.9 /CMM (0.8-4.8); LYMPHOCYTES % (AUTO) 34.2 % (20.0-44.0); MEAN CORPUSCULAR HEMOGLOBIN 32 PG (26.0-33.0); MEAN CORPUSCULAR HGB CONC 35 g/dl (31.0-36.0); MEAN CORPUSCULAR VOLUME 93 fL (80-96); MONOCYTES # (AUTO) 0.7 /CMM (0.1-1.30); NEUTROPHILS # (AUTO) 4.8 /CMM (1.8-8.9); NEUTROPHILS % (AUTO) 55.1 % (43.0-81.0); PLATELET COUNT (AUTO) 293 /CMM (150-450); RDW COEFFICIENT OF VARIATION 15.6 (11.5-15.0); RED BLOOD CELL COUNT(AUTO) 3.75 MIL/uL (4.5-6.0); WHITE BLOOD COUNT (AUTO) 8.6 K/uL (4.3-11.0)
[2017-08-22] MEDS ORDERED: LEVETIRACETAM (500MG) 1,000 MG in IV NS 0.9% 100 ML IV SCH (17:00)
--- NOTE | 2017-08-22 17:03 | NUR ---
PATIENT TAKEN TO CT VIA STRETCHER.
--- NOTE | 2017-08-22 17:15 | NUR ---
PATIENT RETURNED FROM CT IN STABLE CONDITION.
[2017-08-22 17:20] LABS: CALCIUM, SERUM 8.5 mg/dL (8.5-10.1); CREATININE 0.7 mg/dL (0.6-1.3); POTASSIUM 4.1 mmol/L (3.5-5.1)
[2017-08-22] MEDS ORDERED: LEVETIRACETAM (250 MG) 250 MG TABLET PO ONE ×2 (17:46→18:00)
--- NOTE | 2017-08-22 17:49 | NUR ---
DR. CARR INFORMED PATIENT IS HARD STICK, BUT BLOOD WAS ALREADY DRAWN FOR LAB WORK. STATED TO CANCEL IV INSERTION AND IV KEPRRA AND ADMINISTER KEPPRA ORALLY.
--- NOTE | 2017-08-22 18:00 | NUR ---
MARKED FOR D/C,COMMISSION BROKER PAGER FOR ASSISTANCE WITH PURCHASING HIS MEDICATIONS PER REQUEST
--- NOTE | 2017-08-22 18:13 | NUR ---
PT REC'D A MEAL TRAY.
--- NOTE | 2017-08-22 18:40 | NUR ---
Patient discharged to home in stable condition. Written and verbal after care instructions given. Patient verbalizes understanding of instruction, however, refused to take prescription, despite explanation of risks and beneifts. Patient left ambulatory.
[2017-08-22 18:46] VITALS: BP 142/91
== END 2017-08-22 18:40 | disposition home or self-care (01) ==
LOC: ER 16:16
DX: G40.909 Epilepsy, unspecified, not intractable, without status epilepticus (principal); I10 Essential (primary) hypertension; E11.9 Type 2 diabetes mellitus without complications; F17.200 Nicotine dependence, unspecified, uncomplicated; F10.10 Alcohol abuse, uncomplicated; Z60.2 Problems related to living alone
CPT/HCPCS: 36415; 70450; 80048; 85025; 99285; 99406; A4606; J1953; J7030; Z7610

== ENCOUNTER 2017-08-23 09:41 | Emergency (ER) | payer MEDICAID ==
[~2017-08-23] VITALS: Ht 172.7 cm; Wt 83.9 kg
[2017-08-23] MEDS ORDERED: IV NS 0.9% 1,000 ML BAG IV ONE (10:00)
[2017-08-23 10:31] LABS: BASOPHILS # (AUTO) 0.1 /CMM (0.0-0.2); BASOPHILS % (AUTO) 0.8 % (0.0-2.0); EOSINOPHILS # (AUTO) 0.2 /CMM (0.0-0.7); EOSINOPHILS % (AUTO) 2.6 % (0.0-6.0); HEMATOCRIT 40 % (39-51); HEMOGLOBIN 13.4 g/dL (13.5-17.5); LYMPHOCYTES # (AUTO) 2.5 /CMM (0.8-4.8); LYMPHOCYTES % (AUTO) 28.9 % (20.0-44.0); MEAN CORPUSCULAR HEMOGLOBIN 32 PG (26.0-33.0); MEAN CORPUSCULAR HGB CONC 34 g/dl (31.0-36.0); MEAN CORPUSCULAR VOLUME 95 fL (80-96); MONOCYTES # (AUTO) 0.6 /CMM (0.1-1.30); NEUTROPHILS # (AUTO) 5.2 /CMM (1.8-8.9); NEUTROPHILS % (AUTO) 60.7 % (43.0-81.0); PLATELET COUNT (AUTO) 332 /CMM (150-450); RDW COEFFICIENT OF VARIATION 16.5 (11.5-15.0); RED BLOOD CELL COUNT(AUTO) 4.19 MIL/uL (4.5-6.0); WHITE BLOOD COUNT (AUTO) 8.5 K/uL (4.3-11.0)
[2017-08-23 10:50] LABS: CALCIUM, SERUM 8.9 mg/dL (8.5-10.1); CREATININE 0.7 mg/dL (0.6-1.3); POTASSIUM 4.3 mmol/L (3.5-5.1)
[2017-08-23 10:55] VITALS: BP 132/71
[2017-08-23 10:56] LABS: ALBUMIN 3.5 g/dL (3.4-5.0); BILIRUBIN,TOTAL 0.3 mg/dL (0.2-1.0); TOTAL PROTEIN, SERUM 8.6 g/dL (6.4-8.2)
--- NOTE | 2017-08-23 10:57 | NUR ---
PATIENT ELOPED FROM HOSPITAL. PATIENT STEADY AND STABLE ON FEET WHEN LAST SEEN.
== END 2017-08-23 10:59 | disposition left against medical advice (07) ==
LOC: ER 09:43
DX: F10.129 Alcohol abuse with intoxication, unspecified (principal); I10 Essential (primary) hypertension; E11.9 Type 2 diabetes mellitus without complications; G40.909 Epilepsy, unspecified, not intractable, without status epilepticus; F17.200 Nicotine dependence, unspecified, uncomplicated; Z60.2 Problems related to living alone
CPT/HCPCS: 36415; 80053; 83690; 85025; 99284; A4606; G0480; Z7610

== ENCOUNTER 2017-08-23 19:35 | Emergency (ER) | payer MEDICAID ==
[2017-08-23 23:02] LABS: BASOPHILS # (AUTO) 0.1 /CMM (0.0-0.2); BASOPHILS % (AUTO) 1.3 % (0.0-2.0); EOSINOPHILS # (AUTO) 0.3 /CMM (0.0-0.7); EOSINOPHILS % (AUTO) 3.9 % (0.0-6.0); HEMATOCRIT 35 % (39-51); HEMOGLOBIN 11.9 g/dL (13.5-17.5); LYMPHOCYTES # (AUTO) 3.2 /CMM (0.8-4.8); LYMPHOCYTES % (AUTO) 41.3 % (20.0-44.0); MEAN CORPUSCULAR HEMOGLOBIN 32 PG (26.0-33.0); MEAN CORPUSCULAR HGB CONC 34 g/dl (31.0-36.0); MEAN CORPUSCULAR VOLUME 94 fL (80-96); MONOCYTES # (AUTO) 0.4 /CMM (0.1-1.30); MONOCYTES % (AUTO) 5.4 % (2.0-12.0); NEUTROPHILS # (AUTO) 3.7 /CMM (1.8-8.9); NEUTROPHILS % (AUTO) 48.1 % (43.0-81.0); PLATELET COUNT (AUTO) 317 /CMM (150-450); RDW COEFFICIENT OF VARIATION 16.6 (11.5-15.0); RED BLOOD CELL COUNT(AUTO) 3.74 MIL/uL (4.5-6.0); WHITE BLOOD COUNT (AUTO) 7.6 K/uL (4.3-11.0)
[2017-08-23 23:16] LABS: CALCIUM, SERUM 8.6 mg/dL (8.5-10.1); CREATININE 0.6 mg/dL (0.6-1.3); POTASSIUM 4.4 mmol/L (3.5-5.1)
[2017-08-23 23:21] LABS: ALBUMIN 3.1 g/dL (3.4-5.0); BILIRUBIN,DIRECT 0.1 mg/dL (0.0-0.2); BILIRUBIN,TOTAL 0.2 mg/dL (0.2-1.0); TOTAL PROTEIN, SERUM 7.5 g/dL (6.4-8.2)
[2017-08-23 23:23] LABS: SALICYLATE 2.3 mg/dL (2.8-20.0)
[2017-08-24 00:32] LABS: APPEARANCE,URINE CLEAR (CLEAR); BILIRUBIN,URINE NEGATIVE (NEGATIVE); BLOOD, URINE NEGATIVE Ery/uL (NEGATIVE); COLOR,URINE YELLOW (YELLOW); KETONES,URINE NEGATIVE (NEGATIVE); LEUKOCYTE ESTERASE ,URINE NEGATIVE (NEGATIVE); NITRITE, URINE NEGATIVE (NEGATIVE); PROTEIN,URINE NEGATIVE (NEGATIVE); UGLUCOSE NEGATIVE (NEGATIVE); UROBILINOGEN,URINE 0.2 EU/dL (0.2)
--- NOTE | 2017-08-24 06:53 | NUR ---
Patient given written and verbal discharge instructions. Patient verbalizes understanding of instructions. Patient is ambulatory with steady gait. Refuses offer of senior living placement. Patient given list of available shelters in surrounding area.
== END 2017-08-24 06:55 | disposition home or self-care (01) ==
LOC: ER 19:37
DX: F10.129 Alcohol abuse with intoxication, unspecified (principal); G40.909 Epilepsy, unspecified, not intractable, without status epilepticus; I10 Essential (primary) hypertension; E11.9 Type 2 diabetes mellitus without complications; F17.200 Nicotine dependence, unspecified, uncomplicated; Z60.2 Problems related to living alone
CPT/HCPCS: 36415; 80048; 80076; 80305; 80329; 81001; 85025; 99284; G0480 ×2; 81000-TC